=== PATIENT | male | born 1950 | race Caucasian/White ===

== ENCOUNTER 2017-03-31 12:58 | Outpatient (RCR) | payer MEDICARE, BC ==
[2017-02-17 14:09] VITALS: BP 123/75
[2017-02-24] MEDS: [UNRECOGNIZED DRUG - MIXTURE] IVPB PRN (13:49)
[2017-02-24 15:15] VITALS: BP 123/75
[2017-03-03] MEDS: [UNRECOGNIZED DRUG - MIXTURE] IVPB PRN (10:37)
[2017-03-03 11:26] VITALS: BP 121/78
[2017-03-10 10:09] VITALS: BP 112/79
[2017-03-10] MEDS: [UNRECOGNIZED DRUG - MIXTURE] IVPB PRN (10:58)
[2017-03-17 10:57] VITALS: BP 114/77
[2017-03-17] MEDS: NS(*) 0.9% 100 ML BAG 100 ML IVPB PRN (11:00)
[2017-03-17] MEDS: [UNRECOGNIZED DRUG - MIXTURE] IVPB PRN (11:16)
[2017-03-24 13:01] VITALS: BP 112/75
[2017-03-24] MEDS: [UNRECOGNIZED DRUG - MIXTURE] IVPB PRN (13:37)
[~2017-03-31 12:58] MED LIST: DEXTROSE 5%(*) 100 ML BAG 100 ML IVPB PRN; LIDOCAINE/SOD BICARB 8.4% SYR ID PRN; [UNRECOGNIZED DRUG - MIXTURE] IVPB PRN
[2017-03-31 13:37] VITALS: BP 113/74
[2017-03-31] MEDS: NS(*) 0.9% 100 ML BAG 100 ML IVPB PRN (14:18)
[2017-03-31] MEDS: [UNRECOGNIZED DRUG - MIXTURE] IVPB PRN (14:18)
[2017-04-04] MEDS ORDERED: FLU44R INH (09:04)
[2017-04-04] MEDS ORDERED: ALB18R INH (09:04)
[2017-04-18] MEDS ORDERED: FURO-45 PO (07:53)
[2017-04-18] MEDS ORDERED: POTA10CA40 PO (07:53)
[2017-04-18] MEDS ORDERED: GUAI600T57 PO (07:53)
[2017-04-18] MEDS ORDERED: DIGO125T90 PO (07:53)
[2017-04-18] MEDS ORDERED: PRED20TA6 PO (07:53)
[2017-04-18] MEDS ORDERED: SPIR25TA78 PO (07:53)
[2017-04-18] MEDS ORDERED: DILT120C18 PO (07:53)
[2017-04-18] MEDS ORDERED: FLUC200T56 PO (08:16)
[2017-04-29] MEDS ORDERED: DILT120C18 PO (14:53)
[2017-04-29] MEDS ORDERED: AZIT-1 PO (14:56)
[2017-04-29] MEDS ORDERED: OSE75 PO (14:56)
[2017-05-13] MEDS ORDERED: FURO-45 PO (11:58)
[2017-05-13] MEDS ORDERED: POTA10CA40 PO (11:58)
[2017-05-15] MEDS ORDERED: CHOL500045 PO (14:01)
== END 2017-05-17 ==
LOC: SPU 12:58
PROVIDERS: ATTEND Internal Medicine Pulmonary Disease
DX: E88.01 Alpha-1-antitrypsin deficiency (principal)
CPT/HCPCS: 96365; J0256; J7050

== ENCOUNTER 2017-04-04 08:55 | Inpatient (IN) | payer MEDICARE, BC ==
[2017-04-04] VITALS (39 sets, daily range): BP systolic 82–116; BP diastolic 47–80
[~2017-04-04] VITALS: Ht 182.9 cm; Wt 96.6 kg
--- NOTE | 2017-04-04 08:58 | ER Report ---
History and Physical Time Seen By MD: 08:57 HPI/ROS CC: Shortness of breath productive cough HPI: 66-year-old male with a past medical history of antitrypsin deficiency, COPD, oxygen dependent presents to the emergency department with shortness of breath and productive cough. states that they started a Z-Niko on 10/23/2016. He has a standing order for antibiotics due to his antitrypsin and COPD pathology. He has continued to have shortness of breath. He had slight improvement with decrease of fever after the 1st Z-Niko but he is not totally resolved. He presents today with slight hypoxia and increased respiratory rate. He is using accessory muscles. He denies any chest pressure or palpitations. He is talking in 3 to forward sentences. He is getting infusions for his antitrypsin deficiency. ROS: 12 point review of systems essentially negative other than what's mentioned in history of present illness. NURSES AND OLD MEDICAL RECORDS: Reviewed PMH: Reviewed SURGICAL HX: Reviewed FAMILY HX: Noncontributory SOCIAL HX: Patient denies smoking alcohol or illicit drugs. VITAL SIGNS: Reviewed CONSTITUTIONAL: 66-year-old male in moderate to severe distress. PHYSICAL EXAM: HEENT: Pupils equal round reactive to light and accommodate, EOMI, tympanic membranes pearly white umbo present with good light reflex. Lips dry mucous membranes moist gums nonbleeding uvula midline and rises equally with phonation, oropharynx noninjected, teeth intact. NECK: Neck supple, thyroid not appreciated, anterior and posterior cervical lymphadenopathy not appreciated. Trachea midline and rises equally with phonation. CARDIAC: S1-S2 regular rate rhythm no murmurs rubs or gallops. LUNGS: Lungs decreased air movement with expiratory wheeze with rhonchi bilaterally posteriorly in all baker. ABDOMEN: Abdomen soft, nondistended, bowel sounds active in all 4 quadrants, no bruits noted, no CVA tenderness. MUSCULOSKELETAL: Strength 5 out of 5 x 4 extremities, no deformities noted. NEUROLOGIC: Patient alert and oriented by 3 Allergies: Coded Allergies: shellfish derived (Verified Allergy, Severe, 04/04/17) Home Meds Reported Medications Fluticasone Prop 44 Mcg (FLOVENT HFA 44 MCG) 44 Mcg Inha, 44 MCG INH BID, INH 04/04/17 Albuterol Sulfate (VENTOLIN HFA) 18 Gm Inh, 2 PUFF INH Q4-6H, INH 04/04/17 Hx Smoking: No Smoking Status: Never Smoker Exposure to Second Hand Smoke?: Yes (mother and father smoked growing up) Constitutional Vital Sign - Last 24 Hours 04/04/17 04/04/17 04/04/17 04/04/17 08:59 09:00 09:01 09:03 Pulse 85 Resp 26 B/P (MAP) 107/78 107/78 (88) 110/76 (87) Pulse Ox 72 73 O2 Delivery Nasal Cannula 04/04/17 04/04/17 04/04/17 04/04/17 09:08 09:15 09:28 09:28 Pulse 83 84 Resp 25 15 B/P (MAP) 116/78 (91) Pulse Ox 89 92 O2 Delivery Non-Rebreather O2 Flow Rate 15.0 15.0 04/04/17 04/04/17 04/04/17 04/04/17 09:30 09:35 09:45 10:00 Pulse 79 84 86 Resp 14 21 33 28 B/P (MAP) 94/70 (78) 118/70 (86) 109/69 (82) Pulse Ox 90 90 88 04/04/17 10:15 Pulse 86 Resp 19 Pulse Ox 86 Medical Decision Making Data Points Result Diagram: 04/04/17 0908 04/04/17 0908 Laboratory Hematology Test 04/04/17 09:08 04/04/17 10:05 04/04/17 11:02 Red Blood Count 6.97 M/uL (4.00-5.60) Mean Corpuscular Volume 94.0 fL (80.0-96.0) Mean Corpuscular Hemoglobin 31.9 pg (26.0-33.0) Mean Corpuscular Hemoglobin Concent 34.0 g/dL (32.0-36.0) Red Cell Distribution Width 16.4 % (11.5-14.5) Mean Platelet Volume 9.8 fL (7.2-11.1) Neutrophils (%) (Auto) 76.6 % (39.4-72.5) Lymphocytes (%) (Auto) 9.6 % (17.6-49.6) Monocytes (%) (Auto) 10.8 % (4.1-12.4) Eosinophils (%) (Auto) 2.7 % (0.4-6.7) Basophils (%) (Auto) 0.3 % (0.3-1.4) Nucleated RBC Relative Count (auto) 0.1 /100WBC Neutrophils # (Auto) 5.6 K/uL (2.0-7.4) Lymphocytes # (Auto) 0.7 K/uL (1.3-3.6) Monocytes # (Auto) 0.8 K/uL (0.3-1.0) Eosinophils # (Auto) 0.2 K/uL (0.0-0.5) Basophils # (Auto) 0.0 K/uL (0.0-0.1) Nucleated RBC Absolute Count (auto) 0.01 K/uL Sodium Level 136 mmol/L (137-145) Potassium Level 3.3 mmol/L (3.5-5.0) Chloride Level 98 mmol/L (98-107) Carbon Dioxide Level 27 mmol/L (22-30) Blood Urea Nitrogen 12 mg/dl (9-21) Creatinine 0.80 mg/dl (0.66-1.25) Glomerular Filtration Rate Calc > 60.0 Random Glucose 88 mg/dl (75-110) Calcium Level 9.2 mg/dl (8.4-10.2) Total Bilirubin 4.6 mg/dl (0.2-1.3) Aspartate Amino Transf (AST/SGOT) 44 U/L (0-35) Alanine Aminotransferase (ALT/SGPT) 34 U/L (0-56) Alkaline Phosphatase 101 U/L (0-126) Troponin I < 0.012 ng/ml Total Protein 8.1 gm/dl (6.3-8.2) Albumin 4.1 g/dl (3.5-5.0) Blood Gas Puncture Site Right radial Blood Gas Patient Temperature 97.8 DEGREES Arterial Blood pH 7.57 (7.35-7.45) Arterial Blood Partial Pressure CO2 26 mmHg (32-37) Arterial Blood Partial Pressure O2 59 mmHg (60-80) Arterial Blood HCO3 24 mmol/L (20-26) Arterial Blood Oxygen Saturation 94 % (92-100) Arterial Blood Base Excess 2.0 mmol/L Benja Test Acceptable Oxygen Liters/Minute 15l nrb Influenza Type A Antigen Negative (NEGATIVE) Influenza Type B Antigen Negative (NEGATIVE) Chemistry Test 04/04/17 09:08 04/04/17 10:05 04/04/17 11:02 White Blood Count 7.3 k/uL (4.5-11.0) Red Blood Count 6.97 M/uL (4.00-5.60) Hemoglobin 22.2 g/dL (14.0-18.0) Hematocrit 65.5 % (42.0-52.0) Mean Corpuscular Volume 94.0 fL (80.0-96.0) Mean Corpuscular Hemoglobin 31.9 pg (26.0-33.0) Mean Corpuscular Hemoglobin Concent 34.0 g/dL (32.0-36.0) Red Cell Distribution Width 16.4 % (11.5-14.5) Platelet Count 86 K/uL (150-450) Mean Platelet Volume 9.8 fL (7.2-11.1) Neutrophils (%) (Auto) 76.6 % (39.4-72.5) Lymphocytes (%) (Auto) 9.6 % (17.6-49.6) Monocytes (%) (Auto) 10.8 % (4.1-12.4) Eosinophils (%) (Auto) 2.7 % (0.4-6.7) Basophils (%) (Auto) 0.3 % (0.3-1.4) Nucleated RBC Relative Count (auto) 0.1 /100WBC Neutrophils # (Auto) 5.6 K/uL (2.0-7.4) Lymphocytes # (Auto) 0.7 K/uL (1.3-3.6) Monocytes # (Auto) 0.8 K/uL (0.3-1.0) Eosinophils # (Auto) 0.2 K/uL (0.0-0.5) Basophils # (Auto) 0.0 K/uL (0.0-0.1) Nucleated RBC Absolute Count (auto) 0.01 K/uL Glomerular Filtration Rate Calc > 60.0 Calcium Level 9.2 mg/dl (8.4-10.2) Total Bilirubin 4.6 mg/dl (0.2-1.3) Aspartate Amino Transf (AST/SGOT) 44 U/L (0-35) Alanine Aminotransferase (ALT/SGPT) 34 U/L (0-56) Alkaline Phosphatase 101 U/L (0-126) Troponin I < 0.012 ng/ml Total Protein 8.1 gm/dl (6.3-8.2) Albumin 4.1 g/dl (3.5-5.0) Blood Gas Puncture Site Right radial Blood Gas Patient Temperature 97.8 DEGREES Arterial Blood pH 7.57 (7.35-7.45) Arterial Blood Partial Pressure CO2 26 mmHg (32-37) Arterial Blood Partial Pressure O2 59 mmHg (60-80) Arterial Blood HCO3 24 mmol/L (20-26) Arterial Blood Oxygen Saturation 94 % (92-100) Arterial Blood Base Excess 2.0 mmol/L Benja Test Acceptable Oxygen Liters/Minute 15l nrb Influenza Type A Antigen Negative (NEGATIVE) Influenza Type B Antigen Negative (NEGATIVE) Microbiology Microbiology Date/Time Source Procedure Growth Status 04/04/17 09:50 Blood Blood Culture - Preliminary NO GROWTH SO FAR, SET LATE. REINCUBATED Resulted EKG/Imaging Imaging Chest x-ray: IMPRESSION: Patchy right lower lobe consolidation is consistent with pneumonia. Probable additional left lower lobe pneumonia. If the findings are clinically consistent with pneumonia, six-week follow-up after antibiotic treatment is recommended. ED Course/Re-evaluation ED Course Patient received steroids, DuoNeb treatment, antibiotics. Patient is improved but with hemoconcentration. Influenza A and B are negative. Also patient due to acute respiratory alkalosis patient received Ativan. Patient will be given Klor-Con due to his potassium is 3.3. Magnesium is pending. I discussed the case with Dr. Ponce, hospitalist. She accepts patient. Re-evaluation Medical decision-making includes but not limited to PE, pneumonia, COPD exacerbation. Decision to Disposition Date: Apr 04, 2017 Decision to Disposition Time: 12:37 Depart Departure Latest Vital Signs Vital Signs Date Time Temp Pulse Resp B/P (MAP) Pulse Ox O2 Delivery O2 Flow Rate FiO2 04/04/17 10:15 86 19 86 04/04/17 10:00 109/69 (82) 04/04/17 09:28 Non-Rebreather 15.0 Impression: Primary Impression: Elevated hemoglobin Additional Impression: Alpha 1-antitrypsin PiMS phenotype Condition: Improved Disposition: Admitted from ER Problem Qualifiers MARINO BURRIS MD Apr 04, 2017 08:58
[2017-04-04] MEDS ORDERED: ALB18R INH (09:04)
[2017-04-04] MEDS ORDERED: FLU44R INH (09:04)
[2017-04-04] MEDS ORDERED: PIPERACILLIN/TAZO*3.375GM VIAL 3.375 GM in NS(*) 0.9% 100 ML ADDVANT BAG 100 ML IVPB ONE (09:20)
[2017-04-04] MEDS ORDERED: ALBUTEROL/IPRATROPIUM 3 ML NEB NEB SCH (09:20)
[2017-04-04] MEDS: LORazepam 2 MG/ML VIAL IVP ONE ×2 (09:40→10:10)
[2017-04-04] MEDS: methylPREDNIS SUCC 125 MG/2ML IVP ONE ×2 (09:42→10:12)
[2017-04-04 09:49] LABS: PLATELET COUNT, AUTOMATED 86 K/uL (150-450)
--- NOTE | 2017-04-04 10:31 | RADIOLOGY IMAGING REPORT ---
FACILITY: [facility] [place] PATIENT NAME: Marino Evans : 1950 MR: [id number] V: [id number] EXAM DATE: ORDERING PHYSICIAN: MARINO BURRIS TECHNOLOGIST: Location: [facility] Patient: Marino Evans : 1950 Visit/Account:[id number] Date of Sevice: 04/04/2017 CHEST SINGLE AP portable AP at 0947 hours COMPARISON: No available comparisons at the time of this report. The patient has a previous PA latera l chest from 09/17/1715 which cannot be retrieved/reviewed at the time of this report.. HISTORY: RESP DISTRESS FINDINGS: CARDIAC/VASC: No cardiac silhouette abnormality or cardiomegaly. Unremarkable pulmonary vasculatu re. MEDIASTINUM: No visible mass or adenopathy. LUNGS/PLEURA: Patchy interstitial opacities in the right lower lobe consistent with right lower lobe pneumonia. There is an interstitial abnormality in the retrocardiac left lower lobe present to a les ser degree. Unclear if this is acute or chronic. Left lower lobe pneumonia is not excluded.. There is no costophrenic angle blunting and there is no pneumothorax. BONES: No fracture or visible bony lesion. OTHER:Negative. IMPRESSION: Patchy right lower lobe consolidation is consistent with pneumonia. Probable additional left lower lo be pneumonia. If the findings are clinically consistent with pneumonia, six-week follow-up after anti biotic treatment is recommended. Report Dictated By: Miguel Morgan at 04/04/2017 10:24 AM Report E-Signed By: Miguel Morgan at 04/04/2017 10:26 AM WSN:[id number]
[2017-04-04] MEDS ORDERED: NS(*) 0.9% 1000 ML BAG 1,000 ML IV ONE (11:00)
[2017-04-04] MEDS ORDERED: POTASSIUM CHL 20 MEQ TABCR PO ONE (12:40)
[2017-04-04] MEDS ORDERED: INFLUENZA VIRUS VAC 0.5 ML SYR IM ONLY ONE (13:30)
[2017-04-04] MEDS ORDERED: ALBUTEROL 2.5 MG/3 ML NEB NEB PRN (13:30)
[2017-04-04] MEDS ORDERED: ACETAMINOPHEN 325 MG TAB PO PRN (13:30)
[2017-04-04] MEDS: ALBUTEROL/IPRATROPIUM 3 ML NEB NEB SCH ×2 (14:00→17:29)
[2017-04-04] MEDS: NS(*) 0.9% 1000 ML BAG 1,000 ML IV PRN ×2 (14:08→21:24)
[2017-04-04] MEDS: LEVOFLOXACIN/D5W 750 MG/150 ML 150 ML IVPB SCH (14:35)
--- NOTE | 2017-04-04 14:41 | History & Physical ---
History of Present Illness Chief Complaint The patient is a 66 year old male with PMH significant for alpha 1 antitrypsin deficiency who presents with fever and cough starting the evening of March 24. History of Present Illness The patient states he has had lung disease for many years and has seen multiple pulmonologists and ENTs. He reportedly had an alpha 1 antitrypsin level done about 12 years ago, but no one every reviewed it so his deficiency was not identified. A little over a year ago, the patient started seeing Dr Rain, injection maintenance technician, in [place]. Dr. Rain got all of the patient's old medical records and reviewed them. He found the alpha 1 antitrypsin level at that time. Since then, the patient has received weekly replacement through the [facility]. He reports he has about 35% of his lung function remaining at this point. He has an appt. to see one of the world renowned specialists regarding alpha 1 antitrypsin deficiency, Dr. Jurado, at [facility] in April. The patient states he received his infusion at the [facility] on March 24. That evening, his throat felt raw. Early in the morning on the , his temperature shot up to 102 degrees. The patient has azithromycin at home to take in case of respiratory infection. He completed a Z-cesario, but did not feel better. His symptoms continued to worsen and he presented to [facility] ER this am for evaluation. The patient has had cough which has been productive. He has been more short of breath. He usually uses 5L of O2 at home. He also uses a Flovent MDI and a Proventil MDI at home. He uses OTC guaifenesin to thin his mucous. He usually takes 3-4 600mg tablets daily. The patient denies leg swelling or pain. He has not travelled. He has not been exposed to anyone with influenza that he knows of, but was in the [facility] prior to becoming ill. He denies chest pain, but has had some tightness which is improved with albuterol. He has no hx of cardiac disease or clotting issues. History Problems: (1) Alpha 1-antitrypsin PiMS phenotype Status: Chronic (2) GERD (gastroesophageal reflux disease) Status: Chronic (3) History of Norm fundoplication Status: Chronic (4) History of inguinal hernia repair, bilateral Status: Resolved (5) History of rectal surgery Status: Resolved Comment: Anal fissure repair. (6) Hx of tonsillectomy Status: Resolved (7) Nephrolithiasis Status: Resolved (8) Hx of cystoscopy Status: Resolved Home Meds Reported Medications Fluticasone Prop 44 Mcg (FLOVENT HFA 44 MCG) 44 Mcg Inha, 44 MCG INH BID, INH 04/04/17 Albuterol Sulfate (VENTOLIN HFA) 18 Gm Inh, 2 PUFF INH Q4-6H, INH 04/04/17 Allergies: Coded Allergies: shellfish derived (Verified Allergy, Severe, 04/04/17) Other Social/Family Hx The [place] . He never smoked and does not drink alcohol. 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 FH is noncontributory. FH is noncontributory at this time. Hx Smoking: No Smoking Status: Never Smoker Exposure to Second Hand Smoke?: Yes (mother and father smoked growing up) Hx Alcohol Use: No Hx Substance Use Disorder: No Social Drug Use: Never History of IV Drug Use: No Review of Systems All Systems Reviewed/Normal: Yes, Except as Noted Constitutional: Fever, Chills Neurological: Weakness Cardiovascular: Other (Chest tightness.) Respiratory: Shortness of Breath, Cough Gastrointestinal: No Nausea, No Vomiting, No Diarrhea Genitourinary: No Dysuria Musculoskeletal: No Pain Exam Vital Signs Vital Signs Date Time Temp Pulse Resp B/P (MAP) Pulse Ox O2 Delivery O2 Flow Rate FiO2 04/04/17 12:00 18 99/66 (77) 91 04/04/17 11:30 73 04/04/17 09:28 Non-Rebreather 15.0 General Appearance: Alert, Awake, No Acute Distress, Afebrile, Other (Thin.) Neuro: No Gross deficits Eyes: PERRLA ENT: Normal Neck: No Masses Cardiovascular: Regular Rate and Rhythm Respiratory: Other ( BS throughout with some end exiratory wheezes posteriorly, bilaterally.) GI: Abd Soft and Non-Tender Extremities: Warm, Perfused, Other (No edema.) Integumentary: Skin Intact without Lesion / Mass Psych: Alert & Oriented X3, Appropriate Mood & Affect Medical Decision Making Data Points Result Diagram: 04/04/17 0908 04/04/17 0908 Item Value Date Time Influenza Type A Antigen Negative 04/04/17 1102 Influenza Type B Antigen Negative 04/04/17 1102 Item Value Date Time Blood Gas Puncture Site Right radial 04/04/17 1005 Blood Gas Patient Temperature 97.8 DEGREES 04/04/17 1005 Arterial Blood pH 7.57 H 04/04/17 1005 Arterial Blood Partial Pressure CO2 26 mmHg L 04/04/17 1005 Arterial Blood Partial Pressure O2 59 mmHg L 04/04/17 1005 Arterial Blood HCO3 24 mmol/L 04/04/17 1005 Arterial Blood Oxygen Saturation 94 % 04/04/17 1005 Arterial Blood Base Excess 2.0 mmol/L 04/04/17 1005 Benja Test Acceptable 04/04/17 1005 Oxygen Liters/Minute 15l nrb 04/04/17 1005 Calcium Level 9.2 mg/dl 04/04/17 0908 Total Bilirubin 4.6 mg/dl H 04/04/17 0908 Aspartate Amino Transf (AST/SGOT) 44 U/L H 04/04/17 0908 Alanine Aminotransferase (ALT/SGPT) 34 U/L 04/04/17 0908 Alkaline Phosphatase 101 U/L 04/04/17 0908 Troponin I < 0.012 ng/ml 04/04/17 0908 Total Protein 8.1 gm/dl 04/04/17 0908 Albumin 4.1 g/dl 04/04/17 0908 Blood and sputum cultures pending. EKG / Imaging Imaging FACILITY: [facility] PATIENT NAME: Marino Evans : 1950 MR: [id number] V: [id number] EXAM DATE: ORDERING PHYSICIAN: MARINO BURRIS TECHNOLOGIST: Location: [facility] - [place], [place] Patient: Marino Evans : 1950 Visit/Account:[id number] Date of Sevice: 04/04/2017 CHEST SINGLE AP portable AP at 0947 hours COMPARISON: No available comparisons at the time of this report. The patient has a previous PA lateral chest from 09/17/1715 which cannot be retrieved/ reviewed at the time of this report.. HISTORY: RESP DISTRESS FINDINGS: CARDIAC/VASC: No cardiac silhouette abnormality or cardiomegaly. Unremarkable pulmonary vasculature. MEDIASTINUM: No visible mass or adenopathy. LUNGS/PLEURA: Patchy interstitial opacities in the right lower lobe consistent with right lower lobe pneumonia. There is an interstitial abnormality in the retrocardiac left lower lobe present to a lesser degree. Unclear if this is acute or chronic. Left lower lobe pneumonia is not excluded.. There is no costophrenic angle blunting and there is no pneumothorax. BONES: No fracture or visible bony lesion. OTHER:Negative. IMPRESSION: Patchy right lower lobe consolidation is consistent with pneumonia. Probable additional left lower lobe pneumonia. If the findings are clinically consistent with pneumonia, six-week follow-up after antibiotic treatment is recommended. Report Dictated By: Miguel Morgan at 04/04/2017 10:24 AM Report E-Signed By: Miguel Morgan at 04/04/2017 10:26 AM WSN:[id number] Pre-Admit Course ED Medications Zosyn, Duoneb, Solu Medrol, NS, Ativan 1mg. Medical Record Review: Yes Assessment and Plan Problems: (1) Pneumonia Status: Acute Assessment & Plan: The patient has been ill since about 03/24. He initially had high fever. He treated himself with a Zithromax Z-cesario but did not improve. He presents now with bilateral infiltrates. Will place on Zosyn and Levaquin. Consider adding Vancomycin if he does not improve. Will hydrate and continue Solu Medrol. Will order Duonebs qid and albuterol nebs q 2 hours prn. Will continue guaifenesin. He is currently on 15L per nonrebreather. He agrees to intubation if needed while treating his acute infection but does not want us to resuscitate him should he have a cardiac arrest. (2) Hypotension Status: Acute Assessment & Plan: Will bolus with fluids. (3) Alpha 1-antitrypsin PiMS phenotype Status: Chronic Assessment & Plan: [facility] Time Spent on Plan of Care: < 30 min Venous Thromboembolism VTE Risk Patient's VTE Risk: Low VTE Diagnostic Test 2 Days Prior to Admit: No Antithrombotics Is Pt On Any Antithrombotics?: Yes Exam Sepsis Risk: Possible Severe Sepsis Risk MACIEJ ALDRIDGE MD Apr 04, 2017 14:41
[2017-04-04] MEDS: methylPREDNIS SUCC 125 MG/2ML IVP SCH ×2 (16:36→21:19)
[2017-04-04] MEDS: PIPERACILLIN/TAZO*3.375GM VIAL 3.375 GM in NS(*) 0.9% 100 ML ADDVANT BAG 100 ML IVPB SCH ×2 (16:41→21:19)
[2017-04-04] MEDS: guaiFENesin 600 MG TABCR PO SCH (21:19)
[2017-04-05] VITALS (44 sets, daily range): BP systolic 94–118; BP diastolic 59–79; BMI 25.1
[2017-04-05] MEDS: methylPREDNIS SUCC 125 MG/2ML IVP SCH ×4 (04:10→21:16)
[2017-04-05] MEDS: PIPERACILLIN/TAZO*3.375GM VIAL 3.375 GM in NS(*) 0.9% 100 ML ADDVANT BAG 100 ML IVPB SCH ×4 (04:11→21:17)
[2017-04-05 05:35] LABS: PLATELET COUNT, AUTOMATED 61 K/uL (150-450)
[2017-04-05] MEDS: ALBUTEROL/IPRATROPIUM 3 ML NEB NEB SCH ×4 (05:41→17:22)
--- NOTE | 2017-04-05 06:18 | RADIOLOGY IMAGING REPORT ---
FACILITY: [facility] [place] PATIENT NAME: Robi Evans : 1950 MR: [id number] V: [id number] EXAM DATE: ORDERING PHYSICIAN: MACIEJ ALDRIDGE TECHNOLOGIST: Location: [facility] Patient: Robi Evans : 1950 Visit/Account:[id number] Date of Sevice: 04/05/2017 SINGLE AP RADIOGRAPH OF THE CHEST 04/05/2017 6:00 AM. INDICATION: Pneumonia. COMPARISON: Yesterday. FINDINGS/IMPRESSION: Bilateral infrahilar opacification is likely slightly improved on the right. No definite pleural effusion or pneumothorax. Central pulmonary vasculature is prominent. Heart size is normal. Report Dictated By: Bruce Martinez MD at 04/05/2017 6:12 AM Report E-Signed By: Bruce Martinez MD at 04/05/2017 6:14 AM WSN:[id number]
--- NOTE | 2017-04-05 08:30 | Hospitalist Progress Note ---
Subjective Progress Notes Subjective He reports some minor improvements. No fever. Physical Exam Vital Signs Date Time Temp Pulse Resp B/P (MAP) Pulse Ox O2 Delivery O2 Flow Rate FiO2 04/05/17 06:30 55 13 106/67 (80) 91 Vapotherm 25.0 100.0 04/05/17 04:00 97.5 General Appearance: Alert, Awake Cardiovascular: Regular Rate and Rhythm Respiratory: Other (diminished breath sound sthroughout/rales at right base) GI: Soft and Non-Tender Extremities: Warm, Perfused Psych: Alert & Oriented X3 Result Diagram: 04/05/1752304/05/17523 Assessment and Plan Problems: (1) Pneumonia Status: Acute Assessment & Plan: He does have fairly severe underlying COPD secondary to his alpha 1 antitrypsin deficiency. He has been ill since about 03/24/17. He initially had high fever. He treated himself with a Zithromax Z-pack, but did not improve. He presented now with bilateral infiltrates on CXR. He is currently on IV Zosyn, Levaquin, Solu Medrol, Duo-Neb, albuterol, and guaifenesin. He has fairly high O2 requirement, but does appear comfortable at this point. Will continue with the Vapotherm and do short trials with high flow nasal cannula. He agrees to intubation if needed while treating his acute infection, but does not want us to resuscitate him should he have a cardiac arrest. (2) Hypotension Status: Acute Assessment & Plan: Improved with IV fluids. (3) Alpha 1-antitrypsin PiMS phenotype Status: Chronic Assessment & Plan: He has fairly advanced COPD. He [facility]. Exam Sepsis Risk: No Definite Risk CJ ALDRIDGE MD Apr 05, 2017 08:30
[2017-04-05] MEDS: NS(*) 0.9% 1000 ML BAG 1,000 ML IV PRN ×2 (09:31→21:18)
[2017-04-05] MEDS: guaiFENesin 600 MG TABCR PO SCH ×2 (09:31→21:13)
[2017-04-05] MEDS: ENOXAPARIN 40 MG/0.4ML SYR SC SCH (09:32)
[2017-04-05] MEDS: LEVOFLOXACIN/D5W 750 MG/150 ML 150 ML IVPB SCH (14:05)
[2017-04-06] VITALS (24 sets, daily range): BP systolic 93–121; BP diastolic 54–79
[2017-04-06] MEDS: PIPERACILLIN/TAZO*3.375GM VIAL 3.375 GM in NS(*) 0.9% 100 ML ADDVANT BAG 100 ML IVPB SCH ×4 (04:01→21:52)
[2017-04-06] MEDS: methylPREDNIS SUCC 125 MG/2ML IVP SCH ×4 (04:01→21:52)
[2017-04-06 05:01] LABS: PLATELET COUNT, AUTOMATED 70 K/uL (150-450)
[2017-04-06] MEDS: ALBUTEROL/IPRATROPIUM 3 ML NEB NEB SCH ×4 (05:35→16:55)
--- NOTE | 2017-04-06 06:26 | RADIOLOGY IMAGING REPORT ---
FACILITY: [facility] [place] PATIENT NAME: Robi Evans : 1950 MR: [id number] V: [id number] EXAM DATE: ORDERING PHYSICIAN: CJ ALDRIDGE TECHNOLOGIST: [place] [facility] [place] Robi Evans : 1950 Visit/Account:[id number] Date of Sevice: 04/06/2017 SINGLE AP RADIOGRAPH OF THE CHEST 04/06/2017 6:00 AM. INDICATION: right lower lobe pneumonia COMPARISON: Yesterday. FINDINGS: Bilateral infrahilar/lower lung opacities are likely not significantly changed. No definite pleural effusion or pneumothorax. Heart size is normal. IMPRESSION: No significant change. Report Dictated By: Bruce Martinez MD at 04/06/2017 6:21 AM Report E-Signed By: Bruce Martinez MD at 04/06/2017 6:22 AM WSN:[id number]
[2017-04-06] MEDS: guaiFENesin 600 MG TABCR PO SCH ×2 (09:27→21:03)
[2017-04-06] MEDS: ENOXAPARIN 40 MG/0.4ML SYR SC SCH (09:29)
[2017-04-06] MEDS: NS(*) 0.9% 1000 ML BAG 1,000 ML IV PRN (09:32)
--- NOTE | 2017-04-06 10:18 | Hospitalist Progress Note ---
Subjective Progress Notes Subjective This patient was admitted for pneumonia and respiratory failure. He had no acute issues overnight. Patient Complains of: Cardiovascular: No: Chest Pain Respiratory: No: Shortness of Breath Physical Exam Vital Signs Date Time Temp Pulse Resp B/P (MAP) Pulse Ox O2 Delivery O2 Flow Rate FiO2 04/06/17 09:15 80 14 04/06/17 09:08 89 High-Flow Nasal Cannula 13.0 04/06/17 08:00 97.9 118/75 (89) 04/06/17 04:12 100.0 Intake and Output 04/07/17 07:01 Intake Total 200 ml Balance 200 ml Intake Oral 200 ml # Voids 1 # Bowel Movements 1 Neuro: No Gross deficits Eyes: PERRLA Cardiovascular: Regular Rate and Rhythm Respiratory: Clear to Auscultation GI: Soft and Non-Tender Extremities: No Edema Integumentary: No Cyanosis Result Diagram: 04/06/17 0445 04/06/17 0445 Item Value Date Time Influenza Type A Antigen Negative 04/04/17 1102 Influenza Type B Antigen Negative 04/04/17 1102 Item Value Date Time Gram Stain - Final Resulted 04/04/17 1400 Sputum Expectorated Assessment and Plan Problems: (1) Bacterial pneumonia Assessment & Plan: He did present with fever and cough. His chest x-ray did show an infiltrate in the right lung. He has been on empiric treatment with Zosyn and levofloxacin. His sputum culture is showing a gram negative robinson. (2) Acute respiratory failure Assessment & Plan: He did initial require Vapotherm, but is now being maintained on high flow nasal canula. (3) COPD exacerbation Assessment & Plan: He is receiving nebulizers and IV steroids. (4) Hypotension Status: Acute Assessment & Plan: Resolved with IV fluids. (5) Hpsfz-2-fkidcgoqyvauzdka deficiency Assessment & Plan: He does receive [facility] infusions through the [facility]. He is scheduled for another dose tomorrow. We will try to obtain the medication so that it can be obtained here. Exam Sepsis Risk: No Definite Risk LIYAH BUSTAMANTE DO Apr 06, 2017 10:18
[2017-04-06] MEDS: LEVOFLOXACIN/D5W 750 MG/150 ML 150 ML IVPB SCH (13:58)
[2017-04-07] VITALS (18 sets, daily range): BP systolic 91–131; BP diastolic 52–88
[2017-04-07] MEDS: PIPERACILLIN/TAZO*3.375GM VIAL 3.375 GM in NS(*) 0.9% 100 ML ADDVANT BAG 100 ML IVPB SCH ×2 (05:14→10:11)
[2017-04-07] MEDS: methylPREDNIS SUCC 125 MG/2ML IVP SCH ×4 (05:15→22:33)
[2017-04-07] MEDS: ALBUTEROL/IPRATROPIUM 3 ML NEB NEB SCH ×4 (05:20→17:01)
[2017-04-07 05:40] LABS: PLATELET COUNT, AUTOMATED 74 K/uL (150-450)
[2017-04-07] MEDS ORDERED: [UNRECOGNIZED DRUG - MIXTURE] IVPB PRN ×2 (09:11→09:15)
[2017-04-07] MEDS: guaiFENesin 600 MG TABCR PO SCH ×2 (09:29→21:35)
[2017-04-07] MEDS: ENOXAPARIN 40 MG/0.4ML SYR SC SCH (09:31)
[2017-04-07] MEDS: NS(*) 0.9% 500 ML BAG 500 ML IV PRN (09:33)
--- NOTE | 2017-04-07 10:52 | Hospitalist Progress Note ---
Subjective Progress Notes Subjective Overall breathing better. On less O2 today. Physical Exam Vital Signs Date Time Temp Pulse Resp B/P (MAP) Pulse Ox O2 Delivery O2 Flow Rate FiO2 04/07/17 09:24 71 16 04/07/17 09:18 85 High-Flow Nasal Cannula 10.0 04/07/17 08:00 97.8 115/75 (88) 04/06/17 04:12 100.0 Intake and Output 04/08/17 07:00 Intake Total 399 ml Balance 399 ml Intake Oral 200 ml IV Total 199 ml # Voids 1 # Bowel Movements 1 General Appearance: Alert, Awake, No Acute Distress Cardiovascular: Regular Rate and Rhythm Respiratory: Clear to Auscultation Extremities: No Edema Result Diagram: 04/07/1710 04/07/17 0510 Assessment and Plan Problems: (1) Bacterial pneumonia Assessment & Plan: He did present with fever and cough. His chest x-ray did show an infiltrate in the right lung. He has been on empiric treatment with Zosyn and levofloxacin. His sputum culture is growing an Enterobacter Cloacae Complex and MSSA. Will switch to Unasyn and continue Levofloxacin based on sensitivities. His O2 requirement is decreasing, but still high and not to baseline. He will be transferred to the medical floor. (2) Acute respiratory failure Assessment & Plan: He did initial require Vapotherm, but is now being maintained on high flow nasal canula. See above. (3) COPD exacerbation Assessment & Plan: He is receiving nebulizers and IV steroids. (4) Hypotension Status: Acute Assessment & Plan: Resolved with IV fluids. Saline locked. (5) Xxhlf-5-uculmxsrcvrlvrul deficiency Assessment & Plan: [facility] He is scheduled for another dose today. Exam Sepsis Risk: No Definite Risk ANSELMO MENEZES MD Apr 07, 2017 10:52
[2017-04-07] MEDS: LEVOFLOXACIN/D5W 750 MG/150 ML 150 ML IVPB SCH (14:09)
[2017-04-07] MEDS: AMPICILLIN/SULBACT (*) 3 GM VL 3 GM in NS(*) 0.9% 100 ML BAG 100 ML IVPB SCH ×2 (16:30→22:24)
[2017-04-08] MEDS: AMPICILLIN/SULBACT (*) 3 GM VL 3 GM in NS(*) 0.9% 100 ML BAG 100 ML IVPB SCH ×4 (03:25→22:04)
[2017-04-08 03:26] VITALS: BP 118/85
[2017-04-08] MEDS: methylPREDNIS SUCC 125 MG/2ML IVP SCH ×4 (04:08→22:07)
[2017-04-08] MEDS: ALBUTEROL/IPRATROPIUM 3 ML NEB NEB SCH ×4 (05:43→16:53)
[2017-04-08 08:30] VITALS: BP 120/76
[2017-04-08] MEDS: ENOXAPARIN 40 MG/0.4ML SYR SC SCH (09:30)
[2017-04-08] MEDS: guaiFENesin 600 MG TABCR PO SCH ×2 (09:30→20:34)
[2017-04-08 12:25] VITALS: BP 113/90
--- NOTE | 2017-04-08 13:36 | RADIOLOGY IMAGING REPORT ---
FACILITY: [facility] PATIENT NAME: Robi Evans : 1950 MR: [id number] V: [id number] EXAM DATE: ORDERING PHYSICIAN: CJ ALDRIDGE TECHNOLOGIST: Location: [facility] Patient: Robi Evans : 1950 Visit/Account:[id number] Date of Sevice: 04/08/2017 Exam type: CHEST PA AND LAT History: pneumonia Comparison: April 06, 2017. And September 24, 2015 Findings: There is coarse pleural parenchymal scarring in the right lung base as was present on the prior chest from 2016. This does appear slightly increased could represent a superimposed acute process. This finding appears unchanged when compared to April 06, 2017 Linear stranding in the left lung base als o appears similar to the prior study. The cardiac silhouette is normal in size. IMPRESSION: 1. Is coarse pleural parenchymal scarring the right lung base as was present in 2016. This appears slightly more prominent when compared to that study although unchanged when compared to April 06 and could represent an acute process such as acute infiltrate and/or atelectasis. Linear stranding left lung base appears stable when compared to 2016 Report Dictated By: Lenore Smith MD at 04/08/2017 1:27 PM Report E-Signed By: Lenore Smith MD at 04/08/2017 1:31 PM WSN:[email or web address]
--- NOTE | 2017-04-08 14:23 | Hospitalist Progress Note ---
Subjective Progress Notes Subjective His oxygen requirement has been variable. No fever. Physical Exam Vital Signs Date Time Temp Pulse Resp B/P (MAP) Pulse Ox O2 Delivery O2 Flow Rate FiO2 04/08/17 13:15 80 18 04/08/17 13:05 86 High-Flow Nasal Cannula 15.0 04/08/17 12:25 97.5 113/90 (98) 04/06/17 04:12 100.0 Intake and Output 04/09/17 07:00 Intake Total 1790 ml Balance 1790 ml Intake Oral 1790 ml General Appearance: Alert, Awake Cardiovascular: Regular Rate and Rhythm Respiratory: Other (diminished breath sounds bilaterally/scattered rhonchi/no wheezes) GI: Soft and Non-Tender Extremities: Warm, Perfused Result Diagram: 04/07/17 0510 04/07/17 05 Assessment and Plan Problems: (1) Bacterial pneumonia Assessment & Plan: He did present with fever and cough. His chest x-ray did show an infiltrate in the right lung. He was on empiric treatment with Zosyn and levofloxacin, but his sputum culture grew an Enterobacter Cloacae Complex and MSSA. We switched to Unasyn and continued Levofloxacin based on sensitivities. His O2 requirement is variable at times, but still fairly high and not to baseline. Will recheck CXR to see if any complicating factors. (2) COPD exacerbation Assessment & Plan: He is receiving nebulizers and IV steroids. (3) Hypotension Status: Acute Assessment & Plan: Resolved with IV fluids. Saline locked. (4) Idwhc-0-sbcvobpvqwrlxqva deficiency Assessment & Plan: He does [facility]. Exam Sepsis Risk: No Definite Risk CJ ALDRIDGE MD Apr 08, 2017 14:22
[2017-04-08] MEDS: LEVOFLOXACIN/D5W 750 MG/150 ML 150 ML IVPB SCH (14:49)
[2017-04-08 14:58] VITALS: BP 121/84
[2017-04-08 20:17] VITALS: BP 122/76
[2017-04-08 22:10] VITALS: BP 116/82
[2017-04-09 04:43] VITALS: BP 120/81
[2017-04-09] MEDS: AMPICILLIN/SULBACT (*) 3 GM VL 3 GM in NS(*) 0.9% 100 ML BAG 100 ML IVPB SCH ×4 (04:43→21:34)
[2017-04-09] MEDS: methylPREDNIS SUCC 125 MG/2ML IVP SCH ×3 (04:43→16:35)
[2017-04-09] MEDS: ALBUTEROL/IPRATROPIUM 3 ML NEB NEB SCH ×6 (05:21→21:11)
[2017-04-09 06:19] LABS: PLATELET COUNT, AUTOMATED 82 K/uL (150-450)
[2017-04-09] MEDS: ENOXAPARIN 40 MG/0.4ML SYR SC SCH (08:16)
[2017-04-09] MEDS: guaiFENesin 600 MG TABCR PO SCH ×2 (08:16→21:27)
[2017-04-09] MEDS: LEVOFLOXACIN/D5W 750 MG/150 ML 150 ML IVPB SCH (14:07)
--- NOTE | 2017-04-09 17:06 | Hospitalist Progress Note ---
Subjective Progress Notes Subjective The patient denies new complaints. Overall he feels better. He has much less sputum production. Physical Exam Vital Signs Date Time Temp Pulse Resp B/P (MAP) Pulse Ox O2 Delivery O2 Flow Rate FiO2 04/09/17 13:19 81 18 04/09/17 13:10 88 High-Flow Nasal Cannula 12.0 04/09/17 04:43 98.0 120/81 (94) 04/06/17 04:12 100.0 Intake and Output 04/10/17 07:00 Intake Total 450 ml Balance 450 ml Intake Oral 340 ml IV Total 110 ml General Appearance: Alert, Awake, No Acute Distress, Afebrile Neuro: No Gross deficits Eyes: PERRLA Cardiovascular: Regular Rate and Rhythm Respiratory: Other (Markedly decreased BS in bases. Clear upper lung baker. No wheezing today of significance.) GI: Soft and Non-Tender Extremities: Warm, Perfused Integumentary: Skin Intact without Lesion / Mass Psych: Appropriate Mood & Affect Result Diagram: 04/09/17 0553 04/09/17 0553 Assessment and Plan Problems: (1) Bacterial pneumonia Assessment & Plan: He did present with fever and cough. His chest x-ray did show an infiltrate in the right lung. He was on empiric treatment with Zosyn and levofloxacin, but his sputum culture grew an Enterobacter Cloacae Complex and MSSA. We switched to Unasyn and continued Levofloxacin based on sensitivities. His O2 requirement is variable at times, but still fairly high and not to baseline. Repeat CXR did not show any complicating factors. (2) COPD exacerbation Assessment & Plan: He is receiving nebulizers and IV steroids. (3) Hypotension Status: Acute Assessment & Plan: Resolved with IV fluids. Saline locked. (4) Erlwn-2-jyreofugtbtjjqlt deficiency Assessment & Plan: He does receive [facility]. Time Spent on Plan of Care: < 30 min Exam Sepsis Risk: No Definite Risk MACIEJ ALDRIDGE MD Apr 09, 2017 17:06
[2017-04-09 19:43] VITALS: BP 127/88
[2017-04-09 22:29] VITALS: BP 121/77
[2017-04-10] VITALS (7 sets, daily range): BP systolic 116–130; BP diastolic 64–89; BMI 25.1
[2017-04-10] MEDS: methylPREDNIS SUCC 125 MG/2ML IVP SCH ×2 (00:30→08:06)
[2017-04-10] MEDS: ALBUTEROL/IPRATROPIUM 3 ML NEB NEB SCH ×6 (01:03→21:43)
[2017-04-10] MEDS: AMPICILLIN/SULBACT (*) 3 GM VL 3 GM in NS(*) 0.9% 100 ML BAG 100 ML IVPB SCH (04:42)
[2017-04-10] MEDS: guaiFENesin 600 MG TABCR PO SCH ×2 (08:07→20:18)
[2017-04-10] MEDS: AMOX/CLAV 875 MG TAB PO SCH ×2 (09:41→17:24)
--- NOTE | 2017-04-10 11:02 | Hospitalist Progress Note ---
Subjective Progress Notes Subjective This patient was admitted for pneumonia. He had no acute events overnight, but still requires high oxygen levels. Patient Complains of: Cardiovascular: No: Chest Pain Respiratory: No: Shortness of Breath Physical Exam Vital Signs Date Time Temp Pulse Resp B/P (MAP) Pulse Ox O2 Delivery O2 Flow Rate FiO2 04/10/17 09:30 86 18 04/10/17 09:26 88 High-Flow Nasal Cannula 12.0 04/10/17 07:59 98.6 116/64 (81) Cardiovascular: Regular Rate and Rhythm Respiratory: Other (Bilateral crackles and rhonchi.) Extremities: No Edema Integumentary: No Cyanosis Result Diagram: 04/09/17 0553 04/09/17 0553 Item Value Date Time Gram Stain - Final Complete 04/04/17 1400 Sputum Expectorated Assessment and Plan Problems: (1) Bacterial pneumonia Assessment & Plan: He did present with fever and cough. His chest x-ray did show an infiltrate in the right lung. He was on empiric treatment with Zosyn and levofloxacin, but his sputum culture grew an Enterobacter Cloacae Complex and MSSA. We switched to Unasyn and continued Levofloxacin based on sensitivities. He has now completed a full course of the levofloxacin. We have converted him over to oral Augmentin and stopped all the IV antibiotics. (2) Acute respiratory failure Assessment & Plan: He did initial require Vapotherm, but is now being maintained on high flow nasal canula. He continues to require 15 liters after exertion. We will try to wean his oxygen requirements to levels that would be amenable to discharge. (3) COPD exacerbation Assessment & Plan: He has been receiving nebulizers and IV steroids. We converted him to oral prednisone today. (4) Hypotension Status: Acute Assessment & Plan: Resolved with IV fluids. (5) Ikcia-5-juirtmingcfwxcct deficiency Assessment & Plan: He does [facility]. Exam Sepsis Risk: No Definite Risk LIYAH BUSTAMANTE DO Apr 10, 2017 11:02
[2017-04-11] VITALS (33 sets, daily range): BP systolic 66–112; BP diastolic 40–85
[2017-04-11] MEDS: ALBUTEROL/IPRATROPIUM 3 ML NEB NEB SCH ×4 (01:32→12:49)
[2017-04-11] MEDS ORDERED: PROMETHAZINE 25 MG/ML 1 ML AMP IVP PRN (06:20)
[2017-04-11] MEDS: guaiFENesin 600 MG TABCR PO SCH ×2 (09:00→20:38)
[2017-04-11] MEDS ORDERED: predniSONE 20 MG TAB PO SCH (09:00)
[2017-04-11] MEDS ORDERED: LEVOFLOXACIN/D5W 750 MG/150 ML 150 ML IVPB ONE (09:25)
--- NOTE | 2017-04-11 11:14 | Hospitalist Progress Note ---
Subjective Progress Notes Subjective He developed diarrhea, nausea and vomiting. He thinks it is related to starting Augmentin. Still requiring high O2 amounts. Physical Exam Vital Signs Date Time Temp Pulse Resp B/P (MAP) Pulse Ox O2 Delivery O2 Flow Rate FiO2 04/11/17 10:05 High-Flow Nasal Cannula 9.0 04/11/17 09:42 98.6 103 12 112/77 (89) 84 Intake and Output 04/12/17 07:00 Intake Total 120 ml Balance 120 ml Intake Oral 120 ml # Voids 1 # Bowel Movements 4 General Appearance: Alert, Awake, Other (mild work of breathing) Respiratory: Clear to Auscultation GI: Soft and Non-Tender Result Diagram: 04/09/1755204/09/17552 Assessment and Plan Problems: (1) Bacterial pneumonia Assessment & Plan: He did present with fever and cough. His chest x-ray did show an infiltrate in the right lung. He was on empiric treatment with Zosyn and levofloxacin, but his sputum culture grew an Enterobacter Cloacae Complex and MSSA. We switched to Unasyn and continued Levofloxacin based on sensitivities. He will have completed a full course of the levofloxacin with one more dose today. We tried to convert him to oral Augmentin, but he has diarrhea and nausea. Will restart Unasyn for now. (2) Acute respiratory failure Assessment & Plan: He did initial require Vapotherm, but is now being maintained on high flow nasal canula. He continues to require 15 liters after exertion. We will try to wean his oxygen requirements to levels that would be amenable to discharge. (3) COPD exacerbation Assessment & Plan: He has been receiving nebulizers and IV steroids. We converted him to oral prednisone. Will try the Vest. Continue flutter therapy. (4) Hypotension Status: Resolved Assessment & Plan: Resolved with IV fluids. (5) Gimge-9-uanssnxogmsmfuwm deficiency Assessment & Plan: He does receive [facility] through [facility]. Exam Sepsis Risk: No Definite Risk ANSELMO MENEZES MD Apr 11, 2017 11:14
[2017-04-11] MEDS ORDERED: methylPREDNIS SUCC 125 MG/2ML IVP ONE (12:00)
[2017-04-11] MEDS: AMPICILLIN/SULBACT (*) 3 GM VL 3 GM in NS(*) 0.9% 100 ML BAG 100 ML IVPB SCH ×3 (12:16→23:28)
[2017-04-11] MEDS: LACTOBACILLUS ACIDOPHILUS TAB PO SCH ×2 (13:00→17:00)
[2017-04-11] MEDS ORDERED: NS(*) 0.9% 500 ML BAG 500 ML IV ONE ×2 (13:30→16:20)
--- NOTE | 2017-04-11 14:00 | EKG ---
FACILITY: [facility] PATIENT NAME: MARINO SUÁREZ : [id number] MR: [id number] V: [id number] EXAM DATE: ORDERING PHYSICIAN: ANSELMO MENEZES TECHNOLOGIST: Tera Delvalle Reason : Blood Pressure : / mmHG Vent. Rate : 115 BPM Atrial Rate : 115 BPM P-R Int : 128 ms QRS Dur : 068 ms QT Int : 308 ms P-R-T Axes : 060 056 074 degrees QTc Int : 426 ms Sinus tachycardia Low voltage QRS Nonspecific T wave abnormality Abnormal ECG No previous ECGs available Confirmed by ANSELMO MENEZES ([id number]) on 04/11/2017 6:35:13 PM Referred By: Confirmed By:ANSELMO MENEZES
[2017-04-11 14:41] LABS: PLATELET COUNT, AUTOMATED 71 K/uL (150-450)
[2017-04-11] MEDS: FLUCONAZOLE 200 MG/100ML PRMIX 100 ML IVPB SCH (14:52)
--- NOTE | 2017-04-11 15:53 | RADIOLOGY IMAGING REPORT ---
FACILITY: [facility] [place] PATIENT NAME: Robi Evans : 1950 MR: [id number] V: [id number] EXAM DATE: ORDERING PHYSICIAN: ANSELMO MENEZES TECHNOLOGIST: [place] [facility] [place]i [place] : 1950 Visit/Account:[id number] Date of Sevice: 04/11/2017 Examination: CHEST SINGLE AP Comparison: 04/08/2017 History: Hypoxia. Findings: Cardiac and hilar contour size is within normal limits and unchanged. Increased infrahilar parenchymal density and airway thickening. No pneumothorax or effusion. Osseous structures are intact . IMPRESSION: Increased infrahilar parenchymal density is favored to be a combination of atelectasis and bronchitis versus aspiration pneumonitis. Report Dictated By: Conner Garcia MD at 04/11/2017 3:46 PM Report E-Signed By: Conner Garcia MD at 04/11/2017 3:48 PM WSN:[id number]
[2017-04-11] MEDS ORDERED: VANCOMYCIN(*) 1 GM VIAL 2 GM in NS(*) 0.9% 250 ML BAG 250 ML IVPB ONE (16:00)
[2017-04-11] MEDS ORDERED: NS(*) 0.9% 1000 ML BAG 1,000 ML IV ONE ×2 (16:25→19:10)
[2017-04-11] MEDS ORDERED: DIGOXIN 0.5 MG/2 ML AMP IVP ONE ×2 (16:30→21:00)
[2017-04-11] MEDS: NS(*) 0.9% 500 ML BAG 500 ML IV PRN (16:34)
--- NOTE | 2017-04-11 16:49 | Miscellaneous Provider Note ---
Miscellaneous Provider Note Note He had a heart rate this morning of about 160bpm, but once on telemetry, he was down just above 100bpm and in a sinus rhythm. He had a low grade fever then and his sbp was in the 80's. He was given 500cc of NS. Once back in a lower heart rate, his sbp improved into the 90's. The patient was without symptoms ( i.e. cp/sob). Blood cultures were drawn. UA and UCx was done. CMP, Lactate and WBC were ordered. His lacate was a bit up and he has 7 percent bands on the peripheral smear. WBC is normal but increased from previous. CXR with possible new right basilar opacity. Sputum culture is showing budding yeast on the smear so yeast cultures have been ordered. He was restarted on Unasyn. Vancomycin and Fluconazole were started. This afternoon, he went back into a heart rate of 130's to 150's and his sbp is in the 80's. He is in atrial fibrillation. He is getting a liter of NS and digoxin 0.5 mg has been infused. The patient is still asymptomatic. However, he will be transferred to the ICU to be watched closely. ANSELMO MENEZES MD Apr 11, 2017 16:49
[2017-04-11] MEDS ORDERED: DILTIAZEM 5 MG/ML 5ML IVPUSH IVP ONE (17:40)
[2017-04-11] MEDS: LEVALBUTEROL 1.25 MG/3 ML NEB NEB SCH ×2 (17:49→21:49)
[2017-04-11] MEDS: DILTIAZEM HCL* 100 MG ADDVIAL 100 MG in NS(*) 0.9% 100 ML ADDVANT BAG 100 ML IV SCH (17:52)
--- NOTE | 2017-04-11 18:11 | EKG ---
FACILITY: [facility] PATIENT NAME: MARINO SUÁREZ : [id number] MR: [id number] V: [id number] EXAM DATE: ORDERING PHYSICIAN: ANSELMO MENEZES TECHNOLOGIST: Tera Delvalle Reason : Blood Pressure : / mmHG Vent. Rate : 143 BPM Atrial Rate : 040 BPM P-R Int : 000 ms QRS Dur : 068 ms QT Int : 294 ms P-R-T Axes : 000 056 044 degrees QTc Int : 453 ms Atrial fibrillation Low voltage QRS Nonspecific T wave abnormality Compared to previous, now in atrial fibrillation Confirmed by ANSELMO MENEZES ([id number]) on 04/11/2017 6:38:21 PM Referred By: Confirmed By:ANSELMO MENEZES
--- NOTE | 2017-04-11 23:35 | Miscellaneous Provider Note ---
Miscellaneous Provider Note Note The patient was moved to the ICU. He is on the Vapo-therm to keep is saturations up. He reports that he is breathing more comfortably than from the afternoon/evening. Because his respiratory status is tenuous, cardioversion with sedation has been reserved for only if he becomes unstable. He was started on a diltiazem drip and has received another dose of digoxin. His heart rate is about 110 bpm. MAP>65. Item Value Date Time Lactate 2.7 mmol/L H 04/11/17 221 Lactate 2.8 mmol/L H 04/11/17 1820 Lactate 2.6 mmol/L H 04/11/17 1425 Creatinine 0.90 mg/dl 04/11/17 1425 Creatinine 1.00 mg/dl 04/11/17 1820 Creatinine 1.00 mg/dl 04/11/17 2219 Blood Urea Nitrogen 32 mg/dl H 04/11/17 2219 Blood Urea Nitrogen 32 mg/dl H 04/11/17 1820 Blood Urea Nitrogen 31 mg/dl H 04/11/17 1425 Troponin I 0.051 ng/ml 04/11/17 1820 Will give another dose of digoxin and continue the diltiazem drip. ANSELMO MENEZES MD Apr 11, 2017 23:35
[2017-04-12] VITALS (83 sets, daily range): BP systolic 69–133; BP diastolic 49–124
[2017-04-12] MEDS ORDERED: DIGOXIN 0.5 MG/2 ML AMP IVP ONE (01:00)
[2017-04-12] MEDS: LEVALBUTEROL 1.25 MG/3 ML NEB NEB SCH ×6 (01:21→22:00)
[2017-04-12] MEDS: DILTIAZEM HCL* 100 MG ADDVIAL 100 MG in NS(*) 0.9% 100 ML ADDVANT BAG 100 ML IV SCH ×2 (02:10→20:45)
[2017-04-12] MEDS ORDERED: SALINE 0.65% NAS SPR 44 ML BTL PRN (02:20)
[2017-04-12] MEDS ORDERED: HYPROMELLOSE 0.4% LUB 15ML BTL OD PRN (02:20)
[2017-04-12] MEDS: VANCOMYCIN(*) 1 GM VIAL 1 GM, VANCOMYCIN (*) 0.5 GM VIAL 0.25 GM in NS(*) 0.9% 250 ML B... IVPB SCH ×2 (04:14→16:18)
[2017-04-12 05:35] LABS: PLATELET COUNT, AUTOMATED 53 K/uL (150-450)
[2017-04-12] MEDS: AMPICILLIN/SULBACT (*) 3 GM VL 3 GM in NS(*) 0.9% 100 ML BAG 100 ML IVPB SCH ×4 (05:53→23:39)
--- NOTE | 2017-04-12 08:40 | Hospitalist Progress Note ---
Subjective Progress Notes Subjective The patient states his work of breathing is much less today. He is still a bit nauseated. Patient Complains of: Neurological: Weakness Gastrointestinal: Nausea Physical Exam Vital Signs Date Time Temp Pulse Resp B/P (MAP) Pulse Ox O2 Delivery O2 Flow Rate FiO2 04/12/17 07:36 40.0 100.0 04/12/17 07:36 98 04/12/17 07:30 97.5 28 85/76 (79) 83 Vapotherm General Appearance: Alert, Awake, Other (Mild increased work of breathing.) Neuro: No Gross deficits Eyes: PERRLA Cardiovascular: Other (Irregularly irregular.) Respiratory: Other (Mild increased work of breathing. Decreased BS throughout. No wheezing anteriorly.) GI: Soft and Non-Tender Extremities: Warm, Perfused, Other (No edeam.) Integumentary: Skin Intact without Lesion / Mass Psych: Appropriate Mood & Affect Result Diagram: 04/12/1752504/12/17525 Assessment and Plan Problems: (1) Atrial fibrillation with RVR Status: Acute Assessment & Plan: The patient developed atrial fibrillation with RVR. With this he was hypotensive and had increased work of breathing. He was loaded with digoxin and his HR improved. He is now on a low dose diltiazem gtt. His heart rate is currently in the 80s. He is maintaining a MAP in the 70s. (2) Bacterial pneumonia Assessment & Plan: He did present with fever and cough. His chest x-ray did show an infiltrate in the right lung. He was on empiric treatment with Zosyn and levofloxacin, but his sputum culture grew an Enterobacter Cloacae Complex and MSSA. We switched to Unasyn and continued Levofloxacin based on sensitivities. He has completed a full course of the levofloxacin. We tried to convert him to oral Augmentin, but he has diarrhea and nausea. Unasyn was restarted. Repeat sputum culture showed 4+ budding yeast. Fluconazole has been added. The patient developed recurrent fever so Vancomycin was added as well. He is due for a Vanco trough at 1500. (3) Acute respiratory failure Assessment & Plan: He did initial require Vapotherm, and then was maintained on high flow nasal canula. Last evening his respiratory status worsened acutely and he was transferred to ICU and placed back on Vapotherm at 100%. He is saturating in the high 80s. His work of breathing is much improved. Will monitor closely. (4) COPD exacerbation Assessment & Plan: He has been receiving nebulizers and IV steroids. We converted him to oral prednisone. Vest and flutter therapy have been ordered. As he is nauseated and unable to take the prednisone, will switch him back to Solu Medrol. (5) Hypotension Status: Resolved Assessment & Plan: He developed recurrent low BPs due to a fib. He was loaded with digoxin and his HR improved. He is now on a low dose of diltiazem and maintaining a MAP in the 70s. (6) Tovqn-5-whlbhcnpdzhgkvae deficiency Assessment & Plan: He does receive [facility] through the [facility]. Time Spent on Plan of Care: < 30 min Exam Sepsis Risk: Severe Sepsis Risk MACIEJ ALDRIDGE MD Apr 12, 2017 08:40
[2017-04-12] MEDS: methylPREDNIS SUCC 125 MG/2ML IVP SCH ×2 (08:54→20:45)
[2017-04-12] MEDS: LACTOBACILLUS ACIDOPHILUS TAB PO SCH ×3 (08:54→16:17)
[2017-04-12] MEDS: guaiFENesin 600 MG TABCR PO SCH ×2 (08:54→20:45)
[2017-04-12] MEDS: FLUCONAZOLE 200 MG/100ML PRMIX 100 ML IVPB SCH (13:33)
[2017-04-12] MEDS ORDERED: NS(*) 0.9% 250 ML BAG 250 ML ONE (13:46)
[2017-04-13] VITALS (56 sets, daily range): BP systolic 88–116; BP diastolic 57–86; Ht 182.9 cm; Wt 96.6 kg
[2017-04-13] MEDS: LEVALBUTEROL 1.25 MG/3 ML NEB NEB SCH ×6 (01:25→21:20)
[2017-04-13] MEDS: VANCOMYCIN(*) 1 GM VIAL 1 GM, VANCOMYCIN (*) 0.5 GM VIAL 0.25 GM in NS(*) 0.9% 250 ML B... IVPB SCH ×2 (03:48→16:11)
[2017-04-13] MEDS: AMPICILLIN/SULBACT (*) 3 GM VL 3 GM in NS(*) 0.9% 100 ML BAG 100 ML IVPB SCH ×4 (05:43→23:56)
[2017-04-13 06:03] LABS: PLATELET COUNT, AUTOMATED 46 K/uL (150-450)
[2017-04-13] MEDS: guaiFENesin 600 MG TABCR PO SCH ×2 (09:34→20:44)
[2017-04-13] MEDS: LACTOBACILLUS ACIDOPHILUS TAB PO SCH ×3 (09:34→17:35)
[2017-04-13] MEDS: DIGOXIN 0.125 MG TAB PO SCH (09:35)
[2017-04-13] MEDS: methylPREDNIS SUCC 125 MG/2ML IVP SCH ×2 (09:38→20:44)
--- NOTE | 2017-04-13 10:44 | Hospitalist Progress Note ---
Subjective Progress Notes Subjective This patient was admitted for pneumonia. He was transferred back to the ICU secondary to atrial fibrillation over the weekend. Patient Complains of: Cardiovascular: No: Chest Pain Respiratory: No: Shortness of Breath Physical Exam Vital Signs Date Time Temp Pulse Resp B/P (MAP) Pulse Ox O2 Delivery O2 Flow Rate FiO2 04/13/17 10:00 119 04/13/17 09:16 83 Vapotherm 30.0 04/13/17 09:13 20 04/13/17 09:13 100.0 04/13/17 06:00 106/67 (80) 04/13/17 03:45 98.2 Intake and Output 04/14/17 07:00 Intake Total 240 ml Balance 240 ml Intake Oral 240 ml # Voids 1 # Bowel Movements 1 Cardiovascular: Other (Irregular.) Respiratory: Clear to Auscultation Extremities: No Edema Integumentary: No Cyanosis Result Diagram: 04/13/17 0514 04/13/17 0514 Item Value Date Time Gram Stain - Final Complete 04/11/17 1000 Sputum Assessment and Plan Problems: (1) Atrial fibrillation with RVR Status: Acute Assessment & Plan: He did develop atrial fibrillation with a rapid ventricular rate. He was loaded with digoxin and placed on a diltiazem infusion. He remains on a diltiazem infusion today. His heart rate remains in the 120-130 range. We will continue the infusion for now. An echocardiogram is pending. We have not started anticoagulation secondary to his low platelet count. (2) Bacterial pneumonia Assessment & Plan: His chest x-ray did show an infiltrate in the right lung. He was on empiric treatment with Zosyn and levofloxacin, but his sputum culture grew an Enterobacter Cloacae Complex and MSSA. We switched to Unasyn and continued Levofloxacin based on sensitivities. He has completed a full course of the levofloxacin. He developed another fever over the weekend. A second sputum culture showed 4+ yeast. He is currently on treatment with Unasyn, vancomycin, and fluconazole. (3) Acute respiratory failure Assessment & Plan: He has required high flow oxygen with the Vapotherm. We will try to wean his requirements through today. (4) COPD exacerbation Assessment & Plan: He has been receiving nebulizers and IV steroids. (5) Hypotension Status: Resolved Assessment & Plan: He developed recurrent low BPs due to a fib. He was loaded with digoxin and his HR improved. He is now on a low dose of diltiazem and maintaining a MAP in the 70s. (6) Yuptq-6-guzasrwossrrsdzn deficiency Assessment & Plan: He does receive regular infusions through the [facility]. Exam Sepsis Risk: Sepsis Risk LIYAH BUSTAMANTE DO Apr 13, 2017 10:44
[2017-04-13] MEDS: DILTIAZEM HCL* 100 MG ADDVIAL 100 MG in NS(*) 0.9% 100 ML ADDVANT BAG 100 ML IV SCH (13:50)
[2017-04-13] MEDS: FLUCONAZOLE 200 MG/100ML PRMIX 100 ML IVPB SCH (14:29)
[2017-04-13] MEDS: NS(*) 0.9% 500 ML BAG 500 ML IV PRN (15:11)
[2017-04-14] VITALS (42 sets, daily range): BP systolic 89–123; BP diastolic 55–91
[2017-04-14] MEDS: DILTIAZEM HCL* 100 MG ADDVIAL 100 MG in NS(*) 0.9% 100 ML ADDVANT BAG 100 ML IV SCH ×2 (01:27→23:37)
[2017-04-14] MEDS: LEVALBUTEROL 1.25 MG/3 ML NEB NEB SCH ×6 (02:00→22:00)
[2017-04-14] MEDS: VANCOMYCIN(*) 1 GM VIAL 1 GM, VANCOMYCIN (*) 0.5 GM VIAL 0.25 GM in NS(*) 0.9% 250 ML B... IVPB SCH (03:31)
[2017-04-14] MEDS: NS(*) 0.9% 500 ML BAG 500 ML IV PRN ×2 (05:50→20:19)
[2017-04-14] MEDS: AMPICILLIN/SULBACT (*) 3 GM VL 3 GM in NS(*) 0.9% 100 ML BAG 100 ML IVPB SCH ×4 (05:50→23:37)
[2017-04-14 06:12] LABS: PLATELET COUNT, AUTOMATED 58 K/uL (150-450)
[2017-04-14] MEDS ORDERED: FUROSEMIDE 20 MG/2 ML VIAL IVP ONE (07:40)
[2017-04-14] MEDS ORDERED: LOPERAMIDE HCL 2 MG CAP PO ONE (07:40)
[2017-04-14] MEDS: POTASSIUM CHL 10 MEQ TABCR PO SCH ×2 (08:38→17:05)
[2017-04-14] MEDS: LACTOBACILLUS ACIDOPHILUS TAB PO SCH ×3 (08:38→17:04)
[2017-04-14] MEDS: DIGOXIN 0.125 MG TAB PO SCH (08:38)
[2017-04-14] MEDS: guaiFENesin 600 MG TABCR PO SCH ×2 (08:38→20:19)
[2017-04-14] MEDS: methylPREDNIS SUCC 125 MG/2ML IVP SCH ×2 (08:39→20:20)
[2017-04-14] MEDS ORDERED: DILTIAZEM CD 180 MG CAPCR PO SCH (09:00)
[2017-04-14] MEDS ORDERED: [UNRECOGNIZED DRUG - MIXTURE] IVPB ONE (10:00)
--- NOTE | 2017-04-14 10:45 | Hospitalist Progress Note ---
Subjective Progress Notes Subjective Still having loose stools. Breathing is a bit better. Physical Exam Vital Signs Date Time Temp Pulse Resp B/P (MAP) Pulse Ox O2 Delivery O2 Flow Rate FiO2 04/14/17 10:25 116 04/14/17 09:25 20 04/14/17 09:20 88 High-Flow Nasal Cannula 15.0 04/14/17 09:00 123/87 (99) 04/14/17 08:00 97.2 100.0 Intake and Output 04/15/17 07:00 Intake Total 350 ml Balance 350 ml Intake Oral 240 ml IV Total 110 ml # Bowel Movements 1 General Appearance: Alert, Awake, No Acute Distress Cardiovascular: Other (distant heart tones. Irreg, irreg) Respiratory: Clear to Auscultation Extremities: No Edema Result Diagram: 04/14/1752604/14/17526 Assessment and Plan Problems: (1) Atrial fibrillation with RVR Status: Acute Assessment & Plan: He did develop atrial fibrillation with a rapid ventricular rate. He was loaded with digoxin and placed on a diltiazem infusion. He remains on a diltiazem infusion today. His heart rate remains in the 90-110 range. Will switch to oral diltiazem. 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 We have not started anticoagulation secondary to his low platelet count. (2) Bacterial pneumonia Assessment & Plan: His chest x-ray did show an infiltrate in the right lung. He was on empiric treatment with Zosyn and levofloxacin, but his sputum culture grew an Enterobacter Cloacae Complex and MSSA. We switched to Unasyn and continued Levofloxacin based on sensitivities. He has completed a full course of the levofloxacin. He developed another on 04/11. A second sputum culture showed 4+ yeast. He is currently on treatment with Unasyn, vancomycin, and fluconazole. Will stop vancomycin. (3) Acute respiratory failure Assessment & Plan: He has required high flow oxygen with the Vapotherm. We will try to wean his requirements through today. Will try Lasix 10mg to "dry out the lungs". (4) COPD exacerbation Assessment & Plan: He has been receiving nebulizers and IV steroids. (5) Hypotension Status: Resolved Assessment & Plan: He developed recurrent low BPs due to a fib. He was loaded with digoxin and his HR improved. He is now on a low dose of diltiazem and maintaining a MAP in the 70s. (6) Qeqxy-2-ktyohjradjwhddrb deficiency Assessment & Plan: He does receive regular infusions through the [facility]. Exam Sepsis Risk: No Definite Risk ANSELMO MENEZES MD Apr 14, 2017 10:45
[2017-04-14] MEDS: LOPERAMIDE HCL 2 MG CAP PO PRN ×3 (11:15→18:05)
[2017-04-14] MEDS: FLUCONAZOLE 200 MG/100ML PRMIX 100 ML IVPB SCH (14:05)
[2017-04-14] MEDS ORDERED: CHOLESTYRAMINE 4 GM POWD PO ONE (14:05)
--- NOTE | 2017-04-14 17:13 | RADIOLOGY IMAGING REPORT ---
FACILITY: [facility] - [place] PATIENT NAME: MARINO SUÁREZ : [id number] MR: [id number] V: [id number] EXAM DATE: ORDERING PHYSICIAN: ANSELMO MENEZES TECHNOLOGIST: Madeline Lopez EXAMINATION:TWO-DIMENSIONAL ECHOCARDIOGRAPH REASON:ATRIAL FIBRILLATION 2D Measurements (normal values in centimeters) LV endLV endRV endVent.LV PostAorticLeftPercent DiastolicSystolicDiastolicSeptumWallRootAtriumShortening (3.5-5.7)(0.9-2.6)(0.6-1.1)(0.6-1.1)(2.0-3.7)(1.9-4.0)(25-35%) [id number]% STROKE VOLUME: 51 mL. ESTIMATED EJECTION FRACTION:73% PARASTERNAL LONG AXIS: The right ventricle appears to be enlarged. Other chamber sizes are normal. There is mild concentric left ventricular thickening but no evidence for any outflow tract obstruction. The patient appears to be in atrial fibrillation with a rapid ventricular response. No thrombi were noted and the left atrial appendage is not seen. Color examination of the aortic valve was unremarkable. Color examination of the mitral valve reveals a trace of mitral insufficiency present. No wall motion abnormalities were noted. PARASTERNAL SHORT AXIS: Overall left ventricular function appears to be normal. No wall motion abnormalities are noted. The right ventricle appears to be enlarged. Aortic valve was trileaflet in configuration and appears to open normally with minimal aortic sclerosis. Color examination of the pulmonic valve reveals a trace of pulmonic insufficiency. There is a trace to mild amount of tricuspid insufficiency noted. APICAL FOUR AND TWO CHAMBER: Left ventricular function appears to be normal. Right sided heart chambers appear to be enlarged. Left sided heart chambers are normal in size. The mitral valve and tricuspid valve both appear to open normally. Color examination of the mitral valve reveals a trace to mild amount of mitral insufficiency. Color examination of the tricuspid valve reveals a mild amount of tricuspid insufficiency. Tricuspid regurgitation V-max is measured at 2.78 m/sec. Aortic valve area was measured within normal range at 2.8 cm2. SUBCOSTAL VIEW: Technically difficult but no pericardial effusion was noted. The ascending aorta is slightly enlarged at 3.9 cm. OVERALL IMPRESSION: 1. Normal left ventricular ejection fraction of 73%. We were unable to accurately characterize the diastolic function as the patient is in atrial fibrillation. No thrombi were noted but the left atrial appendage was not seen. 2. Right sided heart chamber enlargement with the left sided chambers being normal. 3. Mild concentric left ventricular thickening, no evidence for any outflow tract obstruction. 4. A trileaflet aortic valve with mild aortic sclerosis . 5. A trace of pulmonic insufficiency. 6. Trace to mild amount of both mitral and tricuspid insufficiency. Estimated right ventricular systolic pressure within normal range at 34 mmHg. 7. A trace of aortic insufficiency present. Dictated by: Baljeet Lamb M.D. on 04/13/2017 at 18:30 Transcribed by: MADINA on 04/14/2017 at 11:27 Approved by: Baljeet Lamb M.D. on 04/14/2017 at 17:12 [facility]
[2017-04-15] VITALS (20 sets, daily range): BP systolic 86–116; BP diastolic 60–89
[2017-04-15] MEDS: LOPERAMIDE HCL 2 MG CAP PO PRN ×4 (01:09→19:10)
[2017-04-15] MEDS: LEVALBUTEROL 1.25 MG/3 ML NEB NEB SCH ×7 (02:00→22:17)
[2017-04-15] MEDS: AMPICILLIN/SULBACT (*) 3 GM VL 3 GM in NS(*) 0.9% 100 ML BAG 100 ML IVPB SCH ×4 (05:44→23:15)
[2017-04-15 06:18] LABS: PLATELET COUNT, AUTOMATED 42 K/uL (150-450)
--- NOTE | 2017-04-15 06:53 | RADIOLOGY IMAGING REPORT ---
FACILITY: [facility] - [place] PATIENT NAME: Robi Evans : 1950 MR: [id number] V: [id number] EXAM DATE: ORDERING PHYSICIAN: ANSELMO MENEZES TECHNOLOGIST: Location: [facility] Patient: Robi Evans : 1950 Visit/Account:[id number] Date of Sevice: 04/15/2017 EXAMINATION: Portable AP Chest 04/15/2017 6:00 AM HISTORY: pneumonia COMPARISON: 04/11/2017 FINDINGS: Cardiomediastinal contours: Stable heart size. Aorta is minimally atherosclerotic. Lungs and pleura: Infrahilar airspace opacity in shown bilaterally. Small bilateral effusions. Bones/soft tissues: Normal Cardiac leads are present. IMPRESSION: Small bilateral effusions. Airspace opacity in both bases could be infiltrate or atelecta sis. Report Dictated By: Oleksandr Gomez MD at 04/15/2017 6:47 AM Report E-Signed By: Oleksandr Gomez MD at 04/15/2017 6:48 AM WSN:[id number]
[2017-04-15] MEDS ORDERED: KCL (*) 20 MEQ/100 ML PREMIX 100 ML IV ONE ×2 (08:05→14:00)
--- NOTE | 2017-04-15 08:21 | Hospitalist Progress Note ---
Subjective Progress Notes Subjective He reports feeling "pretty good". Physical Exam Vital Signs Date Time Temp Pulse Resp B/P (MAP) Pulse Ox O2 Delivery O2 Flow Rate FiO2 04/15/17 06:21 77 04/15/17 06:00 97.5 17 102/76 (85) 84 High-Flow Nasal Cannula 12.0 04/14/17 08:00 100.0 General Appearance: Alert, Awake Cardiovascular: Other (Irregular with distant tones) Respiratory: Other (Fairly clear with diminished breath sounds at bases) Chest: No Tenderness GI: Soft and Non-Tender Extremities: Warm, Perfused, Edema (1+ dependent mainly in posterior thighs/ buttocks) Psych: Alert & Oriented X3 Result Diagram: 04/15/17 0557 04/15/17 0557 Assessment and Plan Problems: (1) Atrial fibrillation with RVR Status: Acute Assessment & Plan: He developed atrial fibrillation with rapid ventricular rate. He was loaded with digoxin and placed on a diltiazem infusion. He remains on a diltiazem infusion today. His heart rate has been dipping down into the 50-70 range. Will switch to oral diltiazem today. His echocardiogram showed preserved EF (73%). We have not started anticoagulation secondary to his low platelet count. Will also need to evaluate his hepatic function given his alpha 1 anti-trypsin deficiency. (2) Bacterial pneumonia Assessment & Plan: His chest x-ray did show an infiltrate in the right lung. He was on empiric treatment with Zosyn and levofloxacin, but his sputum culture grew an Enterobacter Cloacae Complex and MSSA. We switched to Unasyn and continued Levofloxacin based on sensitivities. He has completed a full course of the levofloxacin. He developed increased respiratory difficulties on 04/11. A second sputum culture showed 4+ yeast. He is currently on treatment with Unasyn and fluconazole. He was on vancomycin until culture results were available. (3) COPD exacerbation Assessment & Plan: Due to hzjce-7-veuhakyefqm deficiency. He is on replacement therapy. He has been receiving nebulizers and IV steroids. (4) Hypotension Status: Resolved Assessment & Plan: He developed recurrent low BPs due to a-fib and medications for treatment. He was loaded with digoxin and his HR improved. He is now on a low dose of IV diltiazem and maintaining a MAP in the 70s. Will make the switch to oral diltiazem. Watch BPs. (5) Jxltq-5-orstofnglhmwuomf deficiency Assessment & Plan: [facility]. It appears he may have some hepatic dysfunction secondary to this as well. Will check protime/INR. Will also check US or CT scan of liver/spleen to evaluate. (6) Diarrhea Status: Acute Assessment & Plan: Probably due to antibiotics (Augmentin). Will re-check c. difficile as well. Treat as needed. (7) Hypokalemia Status: Acute Assessment & Plan: Due to diarrhea and diuretics. Will replace with IV supplement. Watch labs. Exam Sepsis Risk: No Definite Risk CJ ALDRIDGE MD Apr 15, 2017 08:21
[2017-04-15] MEDS: DILTIAZEM CD 120 MG CAPCR PO SCH (08:37)
[2017-04-15] MEDS: DIGOXIN 0.125 MG TAB PO SCH (08:38)
[2017-04-15] MEDS: methylPREDNIS SUCC 125 MG/2ML IVP SCH ×2 (08:38→20:14)
[2017-04-15] MEDS: LACTOBACILLUS ACIDOPHILUS TAB PO SCH ×3 (08:38→17:55)
[2017-04-15] MEDS: guaiFENesin 600 MG TABCR PO SCH ×2 (08:39→20:14)
[2017-04-15] MEDS: KCL/NS* 20 MEQ/1000 ML PREMIX 1,000 ML IV PRN (08:39)
[2017-04-15 08:49] LABS: INR 1.44
[2017-04-15] MEDS ORDERED: DILTIAZEM CD 180 MG CAPCR PO SCH (09:00)
--- NOTE | 2017-04-15 09:27 | Antimicrobial Stewardship ---
Antimicrobial Stewardship MD Service: Hospitalist Indications: CAP Antimicrobial Allergies Started on Augmentin-- developed severe nausea/vomiting and diarrhea--did not tolerate Antimicrobial History Upon Admission on 04/04: Started Levofloxacin and Zosyn on 04/04 -- received zosyn from 04/04 to 04/07, and levofloxacin 04/04 - 04/11 Antimicrobial Used 04/04: zosyn + levofloxacin 04/11: Unasyn + fluconazole + vancomycin (vanco stopped on 04/14/17) Duration of Therapy: 10-14 Days Start Date: Apr 11, 2017 Height (Calculated Centimeters: [phone] Weight (Calculated Kilograms): 84.000 Creatinine Cl Scr = 0.8, CrCl = 100 ml/min Culture Results: Yes (04/04/17: Blood Cx x 2 (-), 04/04/17: Sputum (+) enterobacter cloacae, MSSA, rare mold 04/11/17: Blood, Urine culture (-), sputum cx (+)--yeast and rare mold) Recommendations re: Culture Continue Unasyn, consider switching fluconazole to an antifungal with broader coverage for rare mold (culture results will be back in 4-5 weeks) Eligable for PO Conversion: No Comments Continue Unasyn 3g IV q6h (today 04/15/17 is day 9 of therapy), consider 10-14 day course. Consider switching fluconazole to add coverage for rare fungal growth (aspergillus?). Consider broadening antifungal coverage with voriconazole if clinical suspicion is high. May also consider galactomanan EIA of the serum (not specific to aspergillus per say). Gabriela Harrell, PharmD, BCOP GABRIELA HARRELL Apr 15, 2017 08:29
[2017-04-15] MEDS ORDERED: IOPAMIDOL 76% 75 ML INFUS BTL 0 ML ONE (10:31)
[2017-04-15] MEDS ORDERED: NS 0.9% 50 ML VIAL 0 ML ONE (10:32)
[2017-04-15] MEDS: FLUCONAZOLE 200 MG/100ML PRMIX 100 ML IVPB SCH (15:01)
--- NOTE | 2017-04-15 19:44 | RADIOLOGY IMAGING REPORT ---
[facility] PATIENT NAME: Robi Evans : 1950 MR: [id number] V: [id number] EXAM DATE: ORDERING PHYSICIAN: CJ ALDRIDGE TECHNOLOGIST: Location: [facility] Patient: Robi Evans : 1950 Visit/Account:[id number] Date of Sevice: 04/15/2017 Abdominal ultrasound Indication: Alpha I antitrypsin deficiency. Possible cirrhosis. Comparison: None Findings: The liver is dense, heterogeneous with microlobulations consistent with underlying hepatocellular dis ease and cirrhosis. Liver measures 16 cm. No focal mass or intrahepatic ductal dilatation. Portal vein is patent with normal directional flow. Moderate amount of ascites. Gallbladder wall is thickened measuring approximately 5 mm. This is nonspecific in the setting of ci rrhosis but can be an indicator of portal hypertension. Negative sonographic Quick's sign. Common b ile duct measures 4.1 mm. Due to bowel gas, the pancreas is obscured. Abdominal aorta and IVC are patent and unremarkable. Right kidney measures 10.5 x 5.2 x 4.5 cm. IMPRESSION: 1. The liver is coarse, heterogeneous and microlobulated, consistent with underlying hepatocellular disease and cirrhosis. 2. Mild gallbladder wall thickening which is nonspecific in setting of cirrhosis but can be an indic ation of portal hypertension. 3. Moderate amount of intra-abdominal ascites. Report Dictated By: Jorge Calix MD at 04/15/2017 7:36 PM Report E-Signed By: Jorge Calix MD at 04/15/2017 7:41 PM WSN:[id number]
[2017-04-16] VITALS (17 sets, daily range): BP systolic 93–135; BP diastolic 73–92
[2017-04-16] MEDS: LOPERAMIDE HCL 2 MG CAP PO PRN (01:48)
[2017-04-16] MEDS: AMPICILLIN/SULBACT (*) 3 GM VL 3 GM in NS(*) 0.9% 100 ML BAG 100 ML IVPB SCH (05:21)
[2017-04-16] MEDS: LEVALBUTEROL 1.25 MG/3 ML NEB NEB SCH ×5 (05:57→21:21)
[2017-04-16 06:25] LABS: PLATELET COUNT, AUTOMATED 37 K/uL (150-450)
[2017-04-16] MEDS: KCL/NS* 20 MEQ/1000 ML PREMIX 1,000 ML IV PRN (06:34)
[2017-04-16] MEDS ORDERED: FUROSEMIDE 20 MG/2 ML VIAL IVP ONE (08:00)
[2017-04-16] MEDS: methylPREDNIS SUCC 125 MG/2ML IVP SCH (08:37)
[2017-04-16] MEDS: LACTOBACILLUS ACIDOPHILUS TAB PO SCH ×3 (08:40→18:29)
[2017-04-16] MEDS: DILTIAZEM CD 120 MG CAPCR PO SCH (08:40)
[2017-04-16] MEDS: DIGOXIN 0.125 MG TAB PO SCH (08:40)
[2017-04-16] MEDS: guaiFENesin 600 MG TABCR PO SCH ×2 (08:42→20:45)
[2017-04-16] MEDS: SPIRONOLACTONE 25 MG TAB PO SCH ×2 (08:42→13:59)
[2017-04-16] MEDS: FUROSEMIDE 40 MG/4 ML VIAL IVP SCH ×3 (08:44→16:07)
--- NOTE | 2017-04-16 08:54 | Hospitalist Progress Note ---
Subjective Progress Notes Subjective This patient was admitted for pneumonia. He had no acute events overnight. Patient Complains of: Cardiovascular: No: Chest Pain Respiratory: No: Shortness of Breath Physical Exam Vital Signs Date Time Temp Pulse Resp B/P (MAP) Pulse Ox O2 Delivery O2 Flow Rate FiO2 04/16/17 07:22 104 04/16/17 07:15 84 High-Flow Nasal Cannula 12.0 04/16/17 06:02 21 110/84 (93) 04/16/17 04:30 100.0 04/16/17 04:00 97.2 Cardiovascular: Regular Rate and Rhythm Respiratory: Other (Diminished breath sounds bilateral.) Extremities: Edema Integumentary: No Cyanosis Result Diagram: 04/16/1752904/16/17529 Assessment and Plan Problems: (1) Atrial fibrillation with RVR Status: Acute Assessment & Plan: He developed atrial fibrillation with rapid ventricular rate. He was loaded with digoxin and placed on a diltiazem infusion. He was converted to oral diltiazem yesterday, and he has tolerated this well. His echocardiogram showed a preserved ejection fraction (73%). We have not started anticoagulation secondary to his low platelet count. (2) Bacterial pneumonia Assessment & Plan: His chest x-ray did show an infiltrate in the right lung. He was on empiric treatment with Zosyn and levofloxacin, but his sputum culture grew an Enterobacter Cloacae Complex and MSSA. We switched to Unasyn and continued Levofloxacin based on sensitivities. He has completed a full course of the levofloxacin and Unasyn. He developed increased respiratory difficulties on 04/11. A second sputum culture showed 4+ yeast. He remains on fluconazole. (3) COPD exacerbation Assessment & Plan: Due to ujwgp-1-rvpfhjnahmx deficiency. He is on replacement therapy. He has been receiving nebulizers and IV steroids. We will convert him to oral prednisone today. (4) Hypotension Status: Resolved Assessment & Plan: Resolved. (5) Lpevh-3-yrwblnraskgesmqh deficiency Assessment & Plan: [facility]. It appears he may have some hepatic dysfunction secondary to this as well. A liver ultrasound was consistent with cirrhosis. (6) Diarrhea Status: Acute Assessment & Plan: Probably due to antibiotics (Augmentin). Will re-check c. difficile as well. Treat as needed. (7) Hypokalemia Status: Acute Assessment & Plan: Resolved with supplementation. (8) Hypoxia Assessment & Plan: He has required increased amounts of oxygen and Vapotherm. We have been able to wean him down to 5 liters without a significant change in his pulse oximetry. Exam Sepsis Risk: Severe Sepsis Risk LIYAH BUSTAMANTE DO Apr 16, 2017 08:54
[2017-04-16] MEDS: predniSONE 20 MG TAB PO SCH (09:00)
[2017-04-16] MEDS: FLUCONAZOLE 200 MG/100ML PRMIX 100 ML IVPB SCH (14:20)
[2017-04-17] VITALS (12 sets, daily range): BP systolic 97–116; BP diastolic 76–86
[2017-04-17] MEDS: LEVALBUTEROL 1.25 MG/3 ML NEB NEB SCH ×2 (02:00→05:27)
[2017-04-17 05:31] LABS: PLATELET COUNT, AUTOMATED 37 K/uL (150-450)
[2017-04-17] MEDS: KCL/NS* 20 MEQ/1000 ML PREMIX 1,000 ML IV PRN (05:54)
[2017-04-17] MEDS ORDERED: KCL (*) 20 MEQ/100 ML PREMIX 100 ML IV ONE (07:25)
[2017-04-17] MEDS ORDERED: LEVALBUTEROL 1.25 MG/3 ML NEB NEB PRN (07:40)
[2017-04-17] MEDS: POTASSIUM CHL PWDR 20 MEQ PKT PO SCH ×2 (08:58→17:15)
[2017-04-17] MEDS: LACTOBACILLUS ACIDOPHILUS TAB PO SCH ×3 (08:58→17:15)
[2017-04-17] MEDS: predniSONE 20 MG TAB PO SCH (08:58)
[2017-04-17] MEDS: guaiFENesin 600 MG TABCR PO SCH ×2 (08:59→21:46)
[2017-04-17] MEDS: FUROSEMIDE 20 MG TAB PO SCH (08:59)
[2017-04-17] MEDS: DILTIAZEM CD 120 MG CAPCR PO SCH (08:59)
[2017-04-17] MEDS: DIGOXIN 0.125 MG TAB PO SCH (08:59)
[2017-04-17] MEDS: SPIRONOLACTONE 25 MG TAB PO SCH (08:59)
--- NOTE | 2017-04-17 10:34 | Hospitalist Progress Note ---
Subjective Progress Notes Subjective Overall, he reports feeling improved. He has tolerated low levels of activity. His oxygen requirement to maintain saturations in 85-88% range are now 6L. Physical Exam Vital Signs Date Time Temp Pulse Resp B/P (MAP) Pulse Ox O2 Delivery O2 Flow Rate FiO2 04/17/17 08:59 103 04/17/17 08:00 97.4 25 116/78 (91) 85 High-Flow Nasal Cannula 6.0 04/16/17 04:30 100.0 Intake and Output 04/18/17 07:00 Intake Total 0 ml Balance 0 ml Intake Oral 0 ml # Voids 1 # Bowel Movements 1 General Appearance: Alert, Awake Cardiovascular: Regular Rate and Rhythm Respiratory: Other (Decreased breath sounds with just a few scattered rhonchi) GI: Soft and Non-Tender Extremities: Warm, Perfused, Edema Psych: Alert & Oriented X3 Result Diagram: 04/17/1745404/17/17454 Assessment and Plan Problems: (1) Bacterial pneumonia Assessment & Plan: His chest x-ray did show an infiltrate in the right lung. He was on empiric treatment with Zosyn and levofloxacin, but his sputum culture grew an Enterobacter Cloacae Complex and MSSA. We switched to Unasyn and continued Levofloxacin based on sensitivities. He has completed a full course of the levofloxacin and Unasyn. He developed increased respiratory difficulties on 04/11, but this was most likely related to the a-fib. A second sputum culture showed 4+ yeast. He remains on fluconazole. (2) Hypoxia Assessment & Plan: He has required very high flow and even Vapotherm with oxygen saturations remaining in 84-87% range. We have been able to wean him down to 6 liters without a significant change in his pulse oximetry. He reports that this has been the case with him in the past. He reports feeling fairly comfortable with this and tolerates the oxygen delivery much better. At this point, we will plan on keeping him on 6L oxygen at rest and increasing to 8L with activity. He will follow up with his Correctional Case Manager to discuss this further. (3) Atrial fibrillation with RVR Status: Acute Assessment & Plan: He developed atrial fibrillation with rapid ventricular rate. He was loaded with digoxin and placed on a diltiazem infusion. He was converted to oral diltiazem and he has tolerated this well. His echocardiogram showed a preserved ejection fraction (73%). We have not started anticoagulation secondary to his low platelet count and moderate hepatic dysfunction. I discussed this with him and he seems to understand very well. He will follow up with his PCP and possibly cardiology as an outpatient to discuss further. (4) COPD exacerbation Assessment & Plan: His COPD is most likely due to sbpoy-6-mipeefjonop deficiency. He is on replacement therapy. He has been receiving nebulizers and IV steroids. We have converted him to oral prednisone. (5) Hypotension Status: Resolved Assessment & Plan: Resolved. (6) Awrxq-5-stzakvhprltzntog deficiency Assessment & Plan: [facility]. He does have COPD, but it appears he also has some hepatic dysfunction secondary to this as well. A liver ultrasound was consistent with cirrhosis. His INR is modestly elevated and his serum proteins are slightly low. He will follow up with his Correctional Case Manager who has been managing his case to discuss further. (7) Diarrhea Status: Acute Assessment & Plan: Resolved. Probably due to antibiotics (Augmentin). C. difficile negative. (8) Hypokalemia Status: Acute Assessment & Plan: Due to diuretics/diarrhea. Continue with supplementation. Exam Sepsis Risk: No Definite Risk CJ ALDRIDGE MD Apr 17, 2017 10:34
[2017-04-17] MEDS: FLUCONAZOLE 100 MG TAB PO SCH (13:30)
[2017-04-18] VITALS: BP 99/72
[2017-04-18 02:00] VITALS: BP 104/75
[2017-04-18 04:00] VITALS: BP 107/87
[2017-04-18 05:44] LABS: PLATELET COUNT, AUTOMATED 32 K/uL (150-450)
[2017-04-18] MEDS ORDERED: DILT120C18 PO (07:53)
[2017-04-18] MEDS ORDERED: PRED20TA6 PO (07:53)
[2017-04-18] MEDS ORDERED: GUAI600T57 PO (07:53)
[2017-04-18] MEDS ORDERED: SPIR25TA78 PO (07:53)
[2017-04-18] MEDS ORDERED: DIGO125T90 PO (07:53)
[2017-04-18] MEDS ORDERED: FURO-45 PO (07:53)
[2017-04-18] MEDS ORDERED: POTA10CA40 PO (07:53)
[2017-04-18 08:00] VITALS: BP 101/81
--- NOTE | 2017-04-18 08:12 | Hospitalist Depart ---
Discharge Summary Reason for Hosp/Final Diag: (1) Bacterial pneumonia Hospital Course & Plan: His chest x-ray did show an infiltrate in the right lung. He was on empiric treatment with Zosyn and levofloxacin, but his sputum culture grew an Enterobacter Cloacae Complex and MSSA. We switched to Unasyn and continued Levofloxacin based on sensitivities. He has completed a full course of the levofloxacin and Unasyn. He developed increased respiratory difficulties on 04/11, but this was most likely related to the a-fib. A second sputum culture showed 4+ yeast. He was placed on fluconazole for a 14 day course. He will follow up with his plumber helper closely as an outpatient. (2) Hypoxia Hospital Course & Plan: He has required very high flow oxygen with saturations remaining in 84-87% range. We have been able to wean him down to 6 liters without a significant change in his pulse oximetry readings. He reports that this has been the case with him in the past. He reports feeling fairly comfortable with this and tolerates this form of oxygen delivery much better. At this point, we will plan on keeping him on 6L oxygen at rest and increasing to 8L with activity. He will follow up with his Maritime Pilot to discuss this further. (3) COPD exacerbation Hospital Course & Plan: His COPD is most likely due to sluqx-9-mpkwgemxjnw deficiency. He is on replacement therapy. He has been receiving nebulizers and IV steroids during his stay. We have converted him to oral prednisone and he will finish a short weaning course. (4) Vxcap-0-ypeekggehilvkrvw deficiency Hospital Course & Plan: [facility]. He does have COPD, but it appears he also has some fairly significant hepatic dysfunction secondary to this as well. A liver ultrasound was consistent with cirrhosis. His INR is modestly elevated and his serum proteins are slightly low. He will follow up with his Maritime Pilot who has been managing his case to discuss further. (5) Atrial fibrillation with RVR Status: Acute Hospital Course & Plan: He developed atrial fibrillation with rapid ventricular rate. He was loaded with digoxin and placed on a diltiazem infusion. He was converted to oral diltiazem and he has tolerated this well. His echocardiogram showed a preserved ejection fraction (73%). We have not started anticoagulation secondary to his low platelet count and moderate hepatic dysfunction. I discussed this with him and he seems to understand very well. He will follow up with his PCP and possibly cardiology as an outpatient to discuss further. (6) Diarrhea Status: Acute Hospital Course & Plan: Resolved. Probably due to antibiotics (Augmentin). C. difficile negative. (7) Hypokalemia Status: Acute Hospital Course & Plan: Due to diuretics/diarrhea. Continue with supplementation. Departure Weight (Pounds): 213 Weight (Ounces): 8.0 Result Diagram: 04/18/1751204/18/17 05 Item Value Date Time White Blood Count 7.3 k/uL 04/04/17 0908 Hemoglobin 22.2 g/dL H 04/04/17 0908 Hematocrit 65.5 % H 04/04/17 0908 Platelet Count 86 K/uL L 04/04/17 0908 Blood Gas Puncture Site Right radial 04/04/17 1005 Blood Gas Patient Temperature 97.8 DEGREES 04/04/17 1005 Arterial Blood pH 7.57 H 04/04/17 1005 Arterial Blood Partial Pressure CO2 26 mmHg L 04/04/17 1005 Arterial Blood Partial Pressure O2 59 mmHg L 04/04/17 1005 Arterial Blood HCO3 24 mmol/L 04/04/17 1005 Arterial Blood Oxygen Saturation 94 % 04/04/17 1005 Arterial Blood Base Excess 2.0 mmol/L 04/04/17 1005 Benja Test Acceptable 04/04/17 1005 Oxygen Liters/Minute 15l nrb 04/04/17 1005 Prothrombin Time 17.8 seconds H 04/15/17 0804 Prothromb Time International Ratio 1.44 04/15/17 0804 Sodium Level 136 mmol/L L 04/04/17 0908 Potassium Level 3.3 mmol/L L 04/04/17 0908 Chloride Level 98 mmol/L 04/04/17 0908 Carbon Dioxide Level 27 mmol/L 04/04/17 0908 Blood Urea Nitrogen 12 mg/dl 04/04/17 0908 Creatinine 0.80 mg/dl 04/04/17 0908 Glomerular Filtration Rate Calc > 60.0 04/04/17 0908 Random Glucose 88 mg/dl 04/04/17 0908 Calcium Level 9.2 mg/dl 04/04/17 0908 Total Bilirubin 4.6 mg/dl H 04/04/17 0908 Aspartate Amino Transf (AST/SGOT) 44 U/L H 04/04/17 0908 Alanine Aminotransferase (ALT/SGPT) 34 U/L 04/04/17 0908 Alkaline Phosphatase 101 U/L 04/04/17 0908 Troponin I < 0.012 ng/ml 04/04/17 0908 Total Protein 8.1 gm/dl 04/04/17 0908 Albumin 4.1 g/dl 04/04/17 0908 Thyroid Stimulating Hormone (TSH) 0.92 uIU/ml 04/12/17 0526 Troponin I 0.028 ng/ml 04/12/17 0526 Lactate 1.8 mmol/L 04/12/17 0526 Troponin I 0.051 ng/ml 04/11/17 1820 Albumin 2.3 g/dl L 04/13/17 0514 Total Protein 4.6 gm/dl L 04/13/17 0514 Alkaline Phosphatase 82 U/L 04/13/17 0514 Alanine Aminotransferase (ALT/SGPT) 28 U/L 04/13/17 0514 Aspartate Amino Transf (AST/SGOT) 42 U/L H 04/13/17 0514 Total Bilirubin 1.6 mg/dl H 04/13/17 0514 Calcium Level 7.8 mg/dl L 04/13/17 0514 Random Glucose 140 mg/dl H 04/13/17 0514 Glomerular Filtration Rate Calc > 60.0 04/13/17 0514 Creatinine 0.80 mg/dl 04/13/17 0514 Blood Urea Nitrogen 31 mg/dl H 04/13/17 0514 Carbon Dioxide Level 22 mmol/L 04/13/17 0514 Chloride Level 108 mmol/L H 04/13/17 0514 Potassium Level 3.4 mmol/L L 04/13/17 0514 Sodium Level 136 mmol/L L 04/13/17 0514 Sodium Level 140 mmol/L 04/15/17 0557 Potassium Level 3.1 mmol/L L 04/15/17 0557 Chloride Level 110 mmol/L H 04/15/17 0557 Carbon Dioxide Level 22 mmol/L 04/15/17 0557 Blood Urea Nitrogen 26 mg/dl H 04/15/17 0557 Creatinine 0.80 mg/dl 04/15/17 0557 Glomerular Filtration Rate Calc > 60.0 04/15/17 0557 Random Glucose 128 mg/dl H 04/15/17 0557 Calcium Level 8.2 mg/dl L 04/15/17 0557 Total Bilirubin 1.7 mg/dl H 04/15/17 0557 Aspartate Amino Transf (AST/SGOT) 24 U/L 04/15/17 0557 Alanine Aminotransferase (ALT/SGPT) 52 U/L 04/15/17 0557 Alkaline Phosphatase 57 U/L 04/15/17 0557 Total Protein 4.5 gm/dl L 04/15/17 0557 Albumin 2.2 g/dl L 04/15/17 0557 Urine Color Sada 04/11/17 1430 Urine Clarity Slightly-cloudy 04/11/17 1430 Urine pH 5.0 pH 04/11/17 1430 Urine Specific [place] 1.030 04/11/17 1430 Urine Protein Negative mg/dL 04/11/17 1430 Urine Glucose (UA) Negative mg/dL 04/11/17 1430 Urine Ketones Negative mg/dL 04/11/17 1430 Urine Blood Negative 04/11/17 1430 Urine Nitrite Negative 04/11/17 1430 Urine Bilirubin Negative 04/11/17 1430 Urine Urobilinogen Negative mg/dL 04/11/17 1430 Urine Leukocyte Esterase Negative 04/11/17 1430 Urine RBC 4 /HPF 04/11/17 1430 Urine WBC None /HPF 04/11/17 1430 Urine Squamous Epithelial Cells None /LPF 04/11/17 1430 Urine Amorphous Crystals Few /HPF 04/11/17 1430 Urine Bacteria Negative /HPF 04/11/17 1430 Urine Hyaline Casts Many /LPF H 04/11/17 1430 Urine Mucus Few /HPF 04/11/17 1430 Digoxin Level 1.4 ng/ml 04/12/17 0526 Digoxin Level 0.8 ng/ml 04/16/17 0530 Clostridium Difficile Toxin A & B Negative 04/15/17 1255 Clostridium difficile Antigen Negative 04/15/17 1255 Clostridium Difficile Toxin A & B Negative 04/11/17 0640 Clostridium difficile Antigen Negative 04/11/17 0640 Influenza Type A Antigen Negative 04/04/17 1102 Influenza Type B Antigen Negative 04/04/17 1102 [facility] LAB *LIVE* [address] [place] [address] MULU HARRIS M.D., DIRECTOR OF LABORATORY SERVICES JONATHON YDE M.D., PATHOLOGIST RUN DATE: 04/09/17 Specimen Inquiry Report PAGE 1 RUN TIME: 1152 PATIENT: MARINO SUÁREZ ACCT: [id number] LOC: [facility] U : [id number] AGE/SX: 66/M ROOM: [facility] REG : 04/04/[address]: MACIEJ ALDRIDGE MD : 1950 BED: 274 DIS : STATUS: ADM IN TLOC: SPEC #: [id number] DOLLY: 04/04/17 STATUS: COMP REQ #: [id number] RECD: 04/04/[address] [facility] [address]: MARINO BURRIS MD SOURCE: BLOOD ENTR: 04/04/[address] [facility] [address]: SPDES: ORDERED: CULT BLOOD COMMENTS: Comments: SOB Procedure Result Verified BLOOD CULTURE Final 04/09/17-1152 NO GROWTH AFTER 5 DAYS IN BOTH THE AEROBIC AND ANAEROBIC BOTTLES. [facility] *LIVE* [address] [facility] [address] MULU HARRIS M.D., DIRECTOR OF LABORATORY SERVICES JONATHON DYE M.D., PATHOLOGIST RUN DATE: 04/09/17 Specimen Inquiry Report PAGE 1 RUN TIME: 1152 PATIENT: MARINO SUÁREZ ACCT: [id number] LOC: MED U : [id number] AGE/SX: 66/M ROOM: 2274 REG : 04/04/[address]: MACIEJ ALDRIDGE MD : 1950 BED: 274 DIS : STATUS: ADM IN TLOC: SPEC #: [id number] DOLLY: 04/04/17 STATUS: COMP REQ #: [id number] RECD: 04/04/[address] [facility] [address]: MARINO BURRIS MD SOURCE: BLOOD PER ENTR: 04/04/[address] [facility] [address]: SPDESC: ORDERED: CULT BLOOD Procedure Result Verified BLOOD CULTURE Final 04/09/17-1152 NO GROWTH AFTER 5 DAYS IN BOTH THE AEROBIC AND ANAEROBIC BOTTLES. [facility] *LIVE* [address] [facility] [place] [address] MULU HARRIS M.D., DIRECTOR OF LABORATORY SERVICES JONATHON DYE M.D., PATHOLOGIST RUN DATE: 04/07/17 Specimen Inquiry Report PAGE 1 RUN TIME: 0852 PATIENT: MARINO SUÁREZ ACCT: [id number] LOC: ICU U : [id number] AGE/SX: 66/M ROOM: [facility] REG : 04/04/[address]: MACIEJ ALDRIDGE MD : 1950 BED: 260 DIS : STATUS: ADM IN TLOC: SPEC #: [id number] DOLLY: 04/04/17 STATUS: COMP REQ #: [id number] RECD: 04/04/[address] [facility] [address]: MACIEJ ALDRIDGE MD SOURCE: SPUTUM EXP ENTR: 04/04/[address] [facility] [address]: MARINO VILLANUEVA MD SPDESC: ORDERED: CULT SPUTUM/GS COMMENTS: Has specimen been collected/obtained? Y Procedure Result Verified GRAM STAIN Final 04/04/17-1612 MANY WHITE BLOOD CELLS MANY MUCUS RARE EPITHELIAL CELLS 4+ GRAM POSITIVE COCCI 1+ GRAM POSITIVE RODS SPUTUM CULTURE Final 04/07/17-851 Organism 1 ENTEROBACTER CLOACAE COMPLEX 1+ GROWTH Organism 2 STAPHYLOCOCCUS AUREUS 4+ GROWTH BETA LACTAMASE: POSITIVE 1+ FUNGUS PRESENT UNABLE TO ISOLATE DUE TO MIXED BELLE IF IDENTIFICATION IS NEEDED SUBMIT A SPECIMEN FOR FUNGAL CULTURE CONTINUED ON NEXT PAGE [facility] *LIVE* [address] [place] [address] MULU HARRIS M.D., DIRECTOR OF LABORATORY SERVICES JONATHON DYE M.D., PATHOLOGIST RUN DATE: 04/07/17 Specimen Inquiry Report PAGE 2 RUN TIME: 851 SPEC: [id number] PATIENT: MARINO SUÁREZ Mary [id number] ( Continued) Procedure Result Verified SPUTUM CULTURE Final (continued) 04/07/17-851 E LANDON CMPX STA AUREUS M.I.C. RX M.I.C. RX --------- --- --------- --- AMPICILLIN/SULBACTAM S CEFAZOLIN >=64 R S CEFTAZIDIME <=1 S CEFTRIAXONE <=1 S CEFEPIME <=1 S CEFOXITIN >=64 R ERTAPENEM <=0.5 S CIPROFLOXACIN <=0.25 S >=8 R CLINDAMYCIN <=0.25 R ERYTHROMYCIN >=8 R GENTAMICIN <=1 S <=0.5 S IMIPENEM <=0.25 S LEVOFLOXACIN <=0.12 S 4 R LINEZOLID 2 S MOXIFLOXACIN 1 I NITROFURANTOIN <=16 S OXACILLIN 0.5 S BENZYLPENICILLIN >=0.5 R PIPERACILLIN/TAZOBACTAM <=4 S QUINUPRISTIN/DALFOPRISTIN <=0.25 S RIFAMPIN <=0.5 S TETRACYCLINE <=1 S TIGECYCLINE <=0.12 S TOBRAMYCIN <=1 S TRIMETHOPRIM/SULFAMETHOXAZOLE <=20 S >=320 R VANCOMYCIN 1 S END OF REPORT [facility] *LIVE* [address] [facility] [place] [address] MULU HARRIS M.D., DIRECTOR OF LABORATORY SERVICES JONATHON DYE M.D., PATHOLOGIST RUN DATE: 04/13/17 Specimen Inquiry Report PAGE 1 RUN TIME: 0746 PATIENT: MARINO SUÁREZ ACCT: [id number] LOC: ICU U : [id number] AGE/SX: 66/M ROOM: [facility] REG : 04/04/[address]: MACIEJ ALDRIDGE MD : 1950 BED: 260 DIS : STATUS: ADM IN TLOC: SPEC #: [id number] DOLLY: 04/11/17 STATUS: COMP REQ #: [id number] RECD: 04/11/17-[address] [facility] [address]: ANSELMO MENZEES MD SOURCE: SPUTUM ENTR: 04/11/17-[address]: MACIEJ ALDRIDGE MD SPDESC: MARINO VILLANUEVA MD ORDERED: CULT SPUTUM/GS COMMENTS: Has specimen been collected/obtained? Y Procedure Result Verified GRAM STAIN Final 04/11/17-1119 1+ WHITE BLOOD CELLS 4+ BUDDING YEAST FUNGAL ELEMENTS, HYPHAE PRESENT MUCUS PRESENT SPUTUM CULTURE Final 04/13/17-745 Organism 1 YEAST SPECIES 4+ GROWTH Organism 2 MOULD RARE GROWTH [facility] *LIVE* [address] [facility] [address] MULU HARRIS M.D., DIRECTOR OF LABORATORY SERVICES JONATHON DYE M.D., PATHOLOGIST RUN DATE: 04/16/17 Specimen Inquiry Report PAGE 1 RUN TIME: 1332 PATIENT: MARINO SUÁREZ ACCT: [id number] LOC: ICU U : [id number] AGE/SX: 66/M ROOM: [facility] REG : 04/04/[address]: MACIEJ ALDRIDGE MD : 1950 BED: 260 DIS : STATUS: ADM IN TLOC: SPEC #: [id number] DOLLY: 04/11/17-1012 STATUS: RES REQ #: [id number] RECD: 04/11/[address] [facility] [address]: ANSELMO MENEZES MD SOURCE: SPUTUM ENTR: 04/11/17-[address] [facility] [address]: MACIE[facility]IDGE [facility] MD ORDERED: FUNGAL CULTURE COMMENTS: Additional Information: please use sputum collected this am Procedure Result Verified FUNGAL CULTURE PRELIM Final 04/16/17 SEE NOTE Client: [facility] Laboratory I/F [address] [place] [address] Physician: MACIEJ ALDRIDGE Patient: MARINO SUÁREZ 1950 Gender: Male Patient Identifiers: [id number] Visit Number (FIN): [id number] Collection Date: 04/11/2017 10:12 Fungal Culture ARUP test code [id number] Collected: 04/11/2017 10:12 MT Started: 04/12/2017 23:36 MT Source: Resp Body Site: Sputum Free Text Sources: SPUTUM Preliminary Report Culture POSITIVE for Yeast not Cryptococcus species END OF CHART VERIFIED/REPORTED DATES Procedure Accession Collected Received Verified/Reported Fungal Culture [id number] 04/11/2017 10:12:00 AM 04/12/2017 10:51:32 PM * This is a updated result. * A prior result that was reported as final has been changed.@ Old result entered: by [email or web address] Old result verified: by [email or web address] New result added: by [email or web address] CONTINUED ON NEXT PAGE [facility] *LIVE* [address] [place] [address] MULU HARRIS M.D., DIRECTOR OF LABORATORY SERVICES JONATHON DYE M.D., PATHOLOGIST RUN DATE: 04/16/17 Specimen Inquiry Report PAGE 2 RUN TIME: 1332 SPEC: [id number] PATIENT: MARINO SUÁREZ [id number] ( Continued) Procedure Result Verified FUNGAL CULTURE PRELIM Final (continued) 04/16/17-1331 RESULTS CALLED TO AND READ BACK BY (FIRST & LAST NAME, CREDENTIALS) added additional results FUNGAL CULTURE FINAL PENDING END OF REPORT [facility]* [address] [facility] [place] [address] MULU HARRIS M.D., DIRECTOR OF LABORATORY SERVICES JONATHON DYE M.D., PATHOLOGIST RUN DATE: 04/16/17 Specimen Inquiry Report PAGE 1 RUN TIME: 1624 PATIENT: MARINO SUÁREZ ACCT: [id number] LOC: ICU U : [id number] AGE/SX: 66/M ROOM: 2260 REG : 04/04/[address]: MACIEJ ALDRIDGE MD : 1950 BED: 260 DIS : STATUS: ADM IN TLOC: SPEC #: [id number] DOLLY: 04/11/17 STATUS: COMP REQ #: [id number] RECD: 04/11/[address] [facility] [address]: ANSELMO MENEZES MD SOURCE: BLOOD ENTR: 04/11/17-[address]: MACIEJ ALDRIDGE MD SPDESC: MARINO VILLANUEVA MD ORDERED: CULT BLOOD Procedure Result Verified BLOOD CULTURE Final 04/16/17-1624 NO GROWTH AFTER 5 DAYS IN BOTH THE AEROBIC AND ANAEROBIC BOTTLES. [facility] LAB *LIVE* [address] [facility] [address] MULU HARRIS M.D., DIRECTOR OF LABORATORY SERVICES JONATHON DYE M.D., PATHOLOGIST RUN DATE: 04/16/17 Specimen Inquiry Report PAGE 1 RUN TIME: 1624 PATIENT: MARINO SUÁREZ ACCT: [id number] LOC: ICU U : [id number] AGE/SX: 66/M ROOM: [facility] REG : 04/04/[address]: MACIEJ ALDRIDGE MD : 1950 BED: 260 DIS : STATUS: ADM IN TLOC: SPEC #: [id number] DOLLY: 04/11/17 STATUS: COMP REQ #: [id number] RECD: 04/11/[address]: ANSELMO MENEZES MD SOURCE: BLOOD ENTR: 04/11/17-[address]: MACIEJ ALDRIDGE MD SPDESC: MARINO VILLANUEVA MD ORDERED: CULT BLOOD Procedure Result Verified BLOOD CULTURE Final 04/16/17162 NO GROWTH AFTER 5 DAYS IN BOTH THE AEROBIC AND ANAEROBIC BOTTLES. [facility] *LIVE* [address] [place] [address] MULU HARRIS M.D., DIRECTOR OF LABORATORY SERVICES JONATHON DYE M.D., PATHOLOGIST RUN DATE: 04/13/17 Specimen Inquiry Report PAGE 1 RUN TIME: 741 PATIENT: MARINO SUÁREZ ACCT: [id number] LOC: ICU U : [id number] AGE/SX: 66/M ROOM: 2260 REG : 04/04/[address]: MACIEJ ALDRIDGE MD : 1950 BED: 260 DIS : STATUS: ADM IN TLOC: SPEC #: [id number] DOLLY: 04/11/17 STATUS: COMP REQ #: [id number] RECD: 04/11/[address]: ANSELMO MENEZES MD SOURCE: CCMS ENTR: 04/11/[address]: MACIEJ ALDRIDGE MD SPDESC: MARINO VILLANUEVA MD ORDERED: CULT URINE COMMENTS: Has specimen been collected/obtained? Y Procedure Result Verified URINE CULTURE Final 04/13/17-741 NO GROWTH AFTER 2 DAYS Imaging PATIENT NAME: Marino Suárez : 1950 MR: [id number] V: [id number] EXAM DATE: ORDERING PHYSICIAN: MARINO BURRIS TECHNOLOGIST: Location: [facility] Patient: Marino Suárez : 1950 Visit/Account:[id number] Date of Sevice: 04/04/2017 CHEST SINGLE AP portable AP at 0947 hours COMPARISON: No available comparisons at the time of this report. The patient has a previous PA lateral chest from 09/17/1715 which cannot be retrieved/ reviewed at the time of this report.. HISTORY: RESP DISTRESS FINDINGS: CARDIAC/VASC: No cardiac silhouette abnormality or cardiomegaly. Unremarkable pulmonary vasculature. MEDIASTINUM: No visible mass or adenopathy. LUNGS/PLEURA: Patchy interstitial opacities in the right lower lobe consistent with right lower lobe pneumonia. There is an interstitial abnormality in the retrocardiac left lower lobe present to a lesser degree. Unclear if this is acute or chronic. Left lower lobe pneumonia is not excluded.. There is no costophrenic angle blunting and there is no pneumothorax. BONES: No fracture or visible bony lesion. OTHER:Negative. IMPRESSION: Patchy right lower lobe consolidation is consistent with pneumonia. Probable additional left lower lobe pneumonia. If the findings are clinically consistent with pneumonia, six-week follow-up after antibiotic treatment is recommended. Report Dictated By: Miguel Morgan at 04/04/2017 10:24 AM Report E-Signed By: Miguel Morgan at 04/04/2017 10:26 AM WSN:[id number] PATIENT NAME: MARINO SUÁREZ : [id number] MR: [id number] V: [id number] EXAM DATE: [id number] ORDERING PHYSICIAN: ANSELMO MENEZES TECHNOLOGIST: Madeline Lopez EXAMINATION: T WO-DIMENSIONAL ECHOCARDIOGRAPH REASON: ATRIAL FIBRILLATION 2D Measurements (normal values in centimeters) LV end LV end RV end Vent. LV Post Aortic Left Percent Diastolic Systolic Diastolic Septum Wall Root Atrium Shortening (3.5-5.7) (0.9-2.6) (0.6-1.1) (0.6-1.1) (2.0-3.7) (1.9-4.0) (25-35%) 3.9 2.2 3.8 1.2 1.2 3.5 3.8 44% STROKE VOLUME: 51 mL. ESTIMATED EJECTION FRACTION: 73% PARASTERNAL LONG AXIS: The right ventricle appears to be enlarged. Other chamber sizes are normal. There is mild concentric left ventricular thickening but no evidence for any outflow tract obstruction. The patient appears to be in atrial fibrillation with a rapid ventricular response. No thrombi were noted and the left atrial appendage is not seen. Color examination of the aortic valve was unremarkable. Color examination of the mitral valve reveals a trace of mitral insufficiency present. No wall motion abnormalities were noted. PARASTERNAL SHORT AXIS: Overall left ventricular function appears to be normal. No wall motion abnormalities are noted. The right ventricle appears to be enlarged. Aortic valve was trileaflet in configuration and appears to open normally with minimal aortic sclerosis. Color examination of the pulmonic valve reveals a trace of pulmonic insufficiency. There is a trace to mild amount of tricuspid insufficiency noted. APICAL FOUR AND TWO CHAMBER: Left ventricular function appears to be normal. Right sided heart chambers appear to be enlarged. Left sided heart chambers are normal in size. The mitral valve and tricuspid valve both appear to open normally. Color examination of the mitral valve reveals a trace to mild amount of mitral insufficiency. Color examination of the tricuspid valve reveals a mild amount of tricuspid insufficiency. Tricuspid regurgitation V-max is measured at 2.78 m/sec. Aortic valve area was measured within normal range at 2.8 cm2. SUBCOSTAL VIEW: Technically difficult but no pericardial effusion was noted. The ascending aorta is slightly enlarged at 3.9 cm. OVERALL IMPRESSION: 1. Normal left ventricular ejection fraction of 73%. We were unable to accurately characterize the diastolic function as the patient is in atrial fibrillation. No thrombi were noted but the left atrial appendage was not seen. 2. Right sided heart chamber enlargement with the left sided chambers being normal. 3. Mild concentric left ventricular thickening, no evidence for any outflow tract obstruction. 4. A trileaflet aortic valve with mild aortic sclerosis . 5. A trace of pulmonic insufficiency. 6. Trace to mild amount of both mitral and tricuspid insufficiency. Estimated right ventricular systolic pressure within normal range at 34 mmHg. 7. A trace of aortic insufficiency present. Dictated by: Baljeet Lamb M.D. on 04/13/2017 at 18:30 Transcribed by: MADINA on 04/14/2017 at 11:27 Approved by: Baljeet Lamb M.D. on 04/14/2017 at 17:12 [facility] PATIENT NAME: Marino Suárez : 1950 MR: [id number] V: [id number] EXAM DATE: [id number] ORDERING PHYSICIAN: CJ ALDRIDGE TECHNOLOGIST: Location: [facility] Patient: Marino Suárez : 1950 Visit/Account:[id number] Date of Sevice: 04/15/2017 Abdominal ultrasound Indication: Alpha I antitrypsin deficiency. Possible cirrhosis. Comparison: None Findings: The liver is dense, heterogeneous with microlobulations consistent with underlying hepatocellular disease and cirrhosis. Liver measures 16 cm. No focal mass or intrahepatic ductal dilatation. Portal vein is patent with normal directional flow. Moderate amount of ascites. Gallbladder wall is thickened measuring approximately 5 mm. This is nonspecific in the setting of cirrhosis but can be an indicator of portal hypertension. Negative sonographic Quick's sign. Common bile duct measures 4.1 mm. Due to bowel gas, the pancreas is obscured. Abdominal aorta and IVC are patent and unremarkable. Right kidney measures 10.5 x 5.2 x 4.5 cm. IMPRESSION: 1. The liver is coarse, heterogeneous and microlobulated, consistent with underlying hepatocellular disease and cirrhosis. 2. Mild gallbladder wall thickening which is nonspecific in setting of cirrhosis but can be an indication of portal hypertension. 3. Moderate amount of intra-abdominal ascites. Report Dictated By: Jorge Calix MD at 04/15/2017 7:36 PM Report E-Signed By: Jorge Calix MD at 04/15/2017 7:41 PM WSN:[id number] EKG PATIENT NAME: MARINO SUÁREZ : [id number] MR: [id number] V: [id number] EXAM DATE: ORDERING PHYSICIAN: ANSELMO MENEZES TECHNOLOGIST: Tera Test Reason : Blood Pressure : / mmHG Vent. Rate : 115 BPM Atrial Rate : 115 BPM P-R Int : 128 ms QRS Dur : 068 ms QT Int : 308 ms P-R-T Axes : 060 056 074 degrees QTc Int : 426 ms Sinus tachycardia Low voltage QRS Nonspecific T wave abnormality Abnormal ECG No previous ECGs available Confirmed by ANSELMO MENEZES ([id number]) on 04/11/2017 6:35:13 PM Referred By: Confirmed By:ANSELMO MENEZES PATIENT NAME: MARINO SUÁREZ : [id number] MR: [id number] V: [id number] EXAM DATE: ORDERING PHYSICIAN: ANSELMO MENEZES TECHNOLOGIST: Tera Test Reason : Blood Pressure : / mmHG Vent. Rate : 143 BPM Atrial Rate : 040 BPM P-R Int : 000 ms QRS Dur : 068 ms QT Int : 294 ms P-R-T Axes : 000 056 044 degrees QTc Int : 453 ms Atrial fibrillation Low voltage QRS Nonspecific T wave abnormality Compared to previous, now in atrial fibrillation Confirmed by ANSELMO MENEZES ([id number]) on 04/11/2017 6:38:21 PM Referred By: Confirmed By:ANSELMO MENEZES Condition: Improved Discharge: Home, Home Health PT/OT Follow Up For: PT For Strengthening, OT For ADL's Home Health RN Follow Up For: Nursing Assessment Home Health [employer] Follow Up For: ADL Assistance Follow-Up Labs: Other (CBC, CMP in approximately one week with Dr. James) Time Spent: > 30 min Discharge Instructions Home Meds Active Scripts Fluconazole (FLUCONAZOLE) 200 Mg Tablet, 200 MG PO QDAY for 6 Days, #6 TAB 0 Refills Prov:CJ ALDRIDGE MD 04/18/17 Potassium Chloride (POTASSIUM CHLORIDE) 10 Meq Capsule.er, 10 MEQ PO BID, #30 CAP 0 Refills Prov:CJ ALDRIDGE MD 04/18/17 Prednisone (PREDNISONE) 20 Mg Tablet, 20 MG PO QDAY, #3 TAB One tab a day for 2 days then one-half tab a day for two days then off Prov:CJ ALDRIDGE MD 04/18/17 Spironolactone (SPIRONOLACTONE) 25 Mg Tablet, 25 MG PO DAILY for 15 Days, #15 TAB 0 Refills Prov:CJ ALDRIDGE MD 04/18/17 Guaifenesin (MUCINEX) 600 Mg Tablet.er, 1200 MG PO BID, #20 TAB 0 Refills Prov:CJ ALDRIDGE MD 04/18/17 Furosemide (FUROSEMIDE) 20 Mg Tablet, 20 MG PO QDAY, #15 TAB 0 Refills Prov:CJ ALDRIDGE MD 04/18/17 Diltiazem Hcl (DILTIAZEM 24HR CD) 120 Mg Cap.er.24h, 240 MG PO QDAY, #30 CAP 1 Refill Prov:CJ ALDRIDGE MD 04/18/17 Digoxin (Digox) 125 Mcg Tablet, 0.125 MG PO QDAY, #30 TAB 1 Refill Prov:CJ ALDRIDGE MD 04/18/17 Reported Medications Fluticasone Prop 44 Mcg (FLOVENT HFA 44 MCG) 44 Mcg Inha, 44 MCG INH BID, INH 04/04/17 Albuterol Sulfate (VENTOLIN HFA) 18 Gm Inh, 2 PUFF INH Q4-6H, INH 04/04/17 Diet: Regular, No Added Salt (YUE) Special Instructions: Patient has a doctor's appointment with on April 29 at 2:00pm,please arrive at 1:30pm to fill out paper work. Follow up with Pulmonolgy as planned in one week. Copies to: ERIN JAMES MD; MARINO VILLANUEVA MD Venous Thromboembolism Antithrombotics Is Pt On Any Antithrombotics?: Yes [id number] Certification Face to Face Home Health Certification Institutional Provider conducted the [id number] encounter. Electronic Undersigning Physician Certifies Home Health. I certify that the patient has been under my care and that I had a [id number] encounter that meets the physician [id number] encounter requirements with this patient. This patient is home-bound due to safety issues and continues to require assistance with ADL's. I certify that based on my findings, that Nursing, Aides and the following Home Health services are medically necessary: physical therapy Medical Necessity: Nursing, Rehab Date Face to Face Conducted: Apr 18, 2017 CJ ALDRIDGE MD Apr 18, 2017 08:12
[2017-04-18] MEDS ORDERED: FLUC200T56 PO (08:16)
[2017-04-18] MEDS: POTASSIUM CHL PWDR 20 MEQ PKT PO SCH (08:29)
[2017-04-18] MEDS: DILTIAZEM CD 120 MG CAPCR PO SCH (08:33)
[2017-04-18] MEDS: LACTOBACILLUS ACIDOPHILUS TAB PO SCH ×2 (08:33→12:46)
[2017-04-18] MEDS: DIGOXIN 0.125 MG TAB PO SCH (08:35)
[2017-04-18] MEDS: guaiFENesin 600 MG TABCR PO SCH (08:35)
[2017-04-18] MEDS: FUROSEMIDE 20 MG TAB PO SCH (08:37)
[2017-04-18] MEDS: predniSONE 20 MG TAB PO SCH (08:38)
[2017-04-18] MEDS ORDERED: SPIRONOLACTONE 25 MG TAB PO SCH (09:00)
[2017-04-18 10:00] VITALS: BP 101/73
[2017-04-18 12:00] VITALS: BP 96/75
[2017-04-18] MEDS: FLUCONAZOLE 100 MG TAB PO SCH (13:39)
== END 2017-04-18 13:45 | disposition home health service (06) | DRG 871 ==
LOC: ER 09:21 → ICU 12:17 → MED 04-07 14:30 → ICU 04-11 16:50
PROVIDERS: ADMIT Internal Medicine; ATTEND Internal Medicine
DX: A41.9 Sepsis, unspecified organism (principal); J15.211 Pneumonia due to Methicillin susceptible Staphylococcus aureus; B37.1 Pulmonary candidiasis; J96.01 Acute respiratory failure with hypoxia; J44.0 Chronic obstructive pulmonary disease with (acute) lower respiratory infection; J44.1 Chronic obstructive pulmonary disease with (acute) exacerbation; E87.3 Alkalosis; K52.1 Toxic gastroenteritis and colitis; B96.89 Other specified bacterial agents as the cause of diseases classified elsewhere; E88.01 Alpha-1-antitrypsin deficiency; I48.0 Paroxysmal atrial fibrillation; T50.2X5A Adverse effect of carbonic-anhydrase inhibitors, benzothiadiazides and other diuretics, initial encounter; K76.89 Other specified diseases of liver; T36.0X5A Adverse effect of penicillins, initial encounter; E87.6 Hypokalemia; K21.9 Gastro-esophageal reflux disease without esophagitis; I95.9 Hypotension, unspecified; Y92.230 Patient room in hospital as the place of occurrence of the external cause; Z99.81 Dependence on supplemental oxygen; Z91.013 Allergy to seafood; Z77.22 Contact with and (suspected) exposure to environmental tobacco smoke (acute) (chronic)
CPT/HCPCS: 36415; 36600; 71045; 71046; 76705; 80162; 80202; 81001; 82040; 82247; 82310; 82374; 82435; 82565; 82803; 82947; 83605; 83735; 84075; 84132; 84155; 84295; 84443; 84450; 84460; 84484; 84520; 85025; 85610; 87040; 87070; 87077; 87088; 87186; 87205; 87252; 87305; 87324; 87449; 87502; 93005; 93306; 94640; 94667; 94668; 96361; 96365; 96375; 97161; 99285; J0256; J0295; J1160; J1450; J1650; J1940; J1956; J2060; J2543; J2550; J2930; J3370; J3480; J3490; J7030; J7040; J7050; J7512; J7613; Q9967

== ENCOUNTER 2017-04-08 17:54 | Outpatient (RCR) | payer MEDICARE, BC ==
[2017-04-05 10:21] VITALS: BMI 25.1
[~2017-04-08 17:54] MED LIST changes: +ALB18R INH; -DEXTROSE 5%(*) 100 ML BAG 100 ML IVPB PRN; +FLU44R INH; -LIDOCAINE/SOD BICARB 8.4% SYR ID PRN; -[UNRECOGNIZED DRUG - MIXTURE] IVPB PRN
== END 2017-04-16 16:15 | disposition home or self-care (01) ==
LOC: TCM 17:54
PROVIDERS: ATTEND Nurse Practitioner
DX: Z02.9 Encounter for administrative examinations, unspecified (principal)

== ENCOUNTER → 2017-05-13 | Outpatient (CLI) | payer MEDICARE, BC ==
[2017-04-05 10:21] VITALS: BMI 25.1
[~2017-05-13] MED LIST changes: +AZIT-1 PO; +DIGO125T90 PO; +DILT120C18 PO; +FLUC200T56 PO; +FURO-45 PO; +GUAI600T57 PO; +OSE75 PO; +POTA10CA40 PO; +PRED20TA6 PO; +SPIR25TA78 PO
== END ==
LOC: LAB 10:40
PROVIDERS: ATTEND Emergency Medicine
DX: K74.60 Unspecified cirrhosis of liver (principal); E83.51 Hypocalcemia
CPT/HCPCS: 36415; 82306; 82310; 82374; 82435; 82565; 82947; 84132; 84295; 84520

== ENCOUNTER → 2017-06-11 | Outpatient (CLI) | payer MEDICARE, BC ==
[2017-04-05 10:21] VITALS: BMI 25.1
[~2017-06-11] MED LIST changes: +CHOL500045 PO; +FLUT1AER INH
== END ==
LOC: LAB 15:16
PROVIDERS: ATTEND Emergency Medicine
DX: K74.60 Unspecified cirrhosis of liver (principal)
CPT/HCPCS: 36415; 82105; 83516; 83540; 83550; 86038; 86706; 86707; 87340; 87350; G0472; 86803

== ENCOUNTER → 2017-06-24 | Outpatient (CLI) | payer MEDICARE, BC ==
[2017-04-05 10:21] VITALS: BMI 25.1
== END ==
LOC: LAB 12:12
PROVIDERS: ATTEND Emergency Medicine
DX: E83.19 Other disorders of iron metabolism (principal); R74.8 Abnormal levels of other serum enzymes
CPT/HCPCS: 36415; 81256; 83516

== ENCOUNTER → 2017-11-27 | Outpatient (CLI) | payer MEDICARE, BC ==
[2017-04-05 10:21] VITALS: BMI 25.1
[~2017-11-27] MED LIST changes: +AMOX-559 PO; +AMOX875T60 PO; +PNEI IJ; -SPIR25TA78 PO; +SPIR25TA80 PO; +SPIR50TA33 PO
== END ==
LOC: LAB 09:02
PROVIDERS: ATTEND Emergency Medicine
DX: K74.60 Unspecified cirrhosis of liver (principal)
CPT/HCPCS: 36415; 82310; 82374; 82435; 82565; 82947; 84132; 84295; 84520

== ENCOUNTER → 2017-12-22 | Outpatient (CLI) | payer MEDICARE, BC ==
[2017-04-05 10:21] VITALS: BMI 25.1
[~2017-12-22] MED LIST changes: +FLU180SY11 IM; +FLU220R INH; +TIO18R INH
[2017-12-22 14:34] LABS: PLATELET COUNT, AUTOMATED 108 K/uL (150-450)
== END ==
LOC: LAB 13:44
PROVIDERS: ATTEND Emergency Medicine
DX: E55.9 Vitamin D deficiency, unspecified (principal); K74.60 Unspecified cirrhosis of liver
CPT/HCPCS: 36415; 82040; 82247; 82306; 82310; 82374; 82435; 82565; 82947; 84075; 84132; 84155; 84295; 84450; 84460; 84520; 85025

== ENCOUNTER 2018-01-22 10:09 | Emergency (ER) | payer MEDICARE, BC ==
[2017-04-05 10:21] VITALS: Wt 78.5 kg
[~2018-01-22 10:09] MED LIST changes: +UMEC62.5 INH
--- NOTE | 2018-01-22 10:14 | ER Report ---
History and Physical Time Seen By MD: 10:14 HPI/ROS CHIEF COMPLAINT: Right-sided abdominal flank pain HISTORY OF PRESENT ILLNESS: Patient is a 67-year-old male here with complaints of right-sided abdominal flank pain which started approximately 2:00 today. Patient reports having history of nephrolithiasis in the past and is similar to this pain. Patient also has a history significant for alpha-1 antitrypsin deficiency affecting patient's lungs. Patient is afebrile on supplemental oxygen. Patient also has a known history of ascites on spironolactone. Patient denies hematuria, burning with urination, fevers or chills, blood in the stools. Pain is intermittent and associated with nausea when present. REVIEW OF SYSTEMS: Constitutional: No fever, no chills. Eyes: No discharge. ENT: No sore throat. Cardiovascular: No chest pain, no palpitations. Respiratory: No cough, no shortness of breath. Gastrointestinal: + right abdominal pain, NV Genitourinary: No hematuria. Musculoskeletal: + right flank pain Skin: No rashes. Neurological: No headache. Allergies: Coded Allergies: shellfish derived (Verified Allergy, Severe, 01/22/18) clavulanic acid (Verified Adverse Reaction, Mild, NAUSEA/VOMITING, ) Nausea and diarrhea with PO. Patient unable to vomit d/t surgery. Home Meds Active Scripts Umeclidinium [place] (Incruse Ellipta) 62.5 Mcg Blst.w.dev, 1 INH INH DAILY, #1 INH 11 Refills Prov:ERIN PAZ MD 01/01/18 Fluticasone Propionate (FLOVENT HFA) 220 Mcg Inha, 1-2 PUFF INH BID, #1 INHALER 11 Refills Prov:ERIN PAZ MD 12/24/17 Spironolactone (SPIRONOLACTONE) 50 Mg Tablet, 12.5 MG PO DAILY, #1 TAB Prov:ERIN PAZ MD 12/22/17 Guaifenesin (MUCINEX) 600 Mg Tablet.er, 1200 MG PO BID, #20 TAB 0 Refills Prov:CJ ALDRIDGE MD 04/18/17 Reported Medications Albuterol Sulfate (VENTOLIN HFA) 18 Gm Inh, 2 PUFF INH Q4-6H, INH 04/04/17 Hx Smoking: No Smoking Status: Never Smoker Exposure to Second Hand Smoke?: Yes (mother and father smoked growing up) Hx Alcohol Use: No Constitutional Vital Sign - Last 24 Hours 01/22/18 01/22/18 01/22/18 01/22/18 10:13 10:17 10:30 11:00 Temp 98.1 Pulse 79 Resp 16 B/P (MAP) 114/73 114/73 (87) 107/70 (82) 95/75 (82) Pulse Ox 86 O2 Delivery Nasal Cannula 01/22/18 01/22/18 01/22/18 01/22/18 11:24 11:29 11:30 11:34 Pulse 72 81 89 B/P (MAP) 94/65 (75) Pulse Ox 92 93 87 O2 Delivery Nasal Cannula O2 Flow Rate 6 01/22/18 01/22/18 01/22/18 01/22/18 11:39 11:54 11:59 12:00 Pulse 73 73 80 B/P (MAP) 106/71 (83) Pulse Ox 92 93 91 01/22/18 01/22/18 01/22/18 01/22/18 12:05 12:10 12:20 12:25 Pulse 80 77 70 75 Pulse Ox 91 90 89 88 01/22/18 01/22/18 01/22/18 01/22/18 12:30 12:35 12:45 12:50 Pulse 72 ??? 81 79 B/P (MAP) 98/65 (76) Pulse Ox 90 90 91 01/22/18 01/22/18 01/22/18 01/22/18 12:55 13:00 13:05 13:10 Pulse 82 75 70 B/P (MAP) 97/63 (74) Pulse Ox 90 90 93 92 01/22/18 01/22/18 01/22/18 01/22/18 13:15 13:20 13:25 13:30 Pulse 68 67 68 70 B/P (MAP) 98/64 (75) Pulse Ox 92 94 93 94 O2 Delivery Nasal Cannula O2 Flow Rate 6 01/22/18 01/22/18 01/22/18 01/22/18 13:35 13:40 13:45 13:55 Pulse 70 ??? 80 79 Pulse Ox 95 93 94 93 01/22/18 01/22/18 01/22/18 01/22/18 14:00 14:05 14:15 14:20 Pulse 80 80 82 B/P (MAP) 94/62 (73) Pulse Ox 92 91 91 90 O2 Delivery Nasal Cannula O2 Flow Rate 6 01/22/18 01/22/18 01/22/18 01/22/18 14:25 14:30 14:35 14:40 Pulse 81 78 ??? 87 B/P (MAP) 94/58 (70) Pulse Ox 90 89 91 83 01/22/18 01/22/18 01/22/18 01/22/18 14:45 14:50 15:00 15:05 Pulse 79 76 70 B/P (MAP) 101/66 (78) Pulse Ox 89 89 91 91 O2 Delivery Nasal Cannula O2 Flow Rate 6 01/22/18 15:15 Pulse 73 Pulse Ox 91 Physical Exam General Appearance: The patient is alert, has no immediate need for airway protection and no signs of toxicity. Eyes: Pupils equal and round no pallor or injection. ENT, Mouth: Mucous membranes are moist. Respiratory: There are no retractions, lungs are clear to auscultation. Cardiovascular: Regular rate and rhythm. Gastrointestinal: Abdomen is soft and + tender in right lower abdomen, no masses, bowel sounds normal. Neurological: No focal deficits Skin: Warm and dry, no rashes. Musculoskeletal: Neck is supple non tender. Extremities are nontender, nonswollen and have full range of motion. DIFFERENTIAL DIAGNOSIS: After history and physical exam differential diagnosis was considered for abdominal pain including but not limited to appendicitis, cholecystitis, gastritis and urinary tract infection, nephrolithiasis Medical Decision Making Data Points Result Diagram: 01/22/18 1021 01/22/18 1021 Laboratory Hematology Test 01/22/18 10:21 01/22/18 11:35 Red Blood Count 5.15 M/uL (4.00-5.60) Mean Corpuscular Volume 97.0 fL (80.0-96.0) Mean Corpuscular Hemoglobin 32.9 pg (26.0-33.0) Mean Corpuscular Hemoglobin Concent 33.9 g/dL (32.0-36.0) Red Cell Distribution Width 16.0 % (11.5-14.5) Mean Platelet Volume 9.0 fL (7.2-11.1) Neutrophils (%) (Auto) 82.4 % (39.4-72.5) Lymphocytes (%) (Auto) 11.2 % (17.6-49.6) Monocytes (%) (Auto) 5.6 % (4.1-12.4) Eosinophils (%) (Auto) 0.4 % (0.4-6.7) Basophils (%) (Auto) 0.4 % (0.3-1.4) Nucleated RBC Relative Count (auto) 0.0 /100WBC Neutrophils # (Auto) 5.3 K/uL (2.0-7.4) Lymphocytes # (Auto) 0.7 K/uL (1.3-3.6) Monocytes # (Auto) 0.4 K/uL (0.3-1.0) Eosinophils # (Auto) 0.0 K/uL (0.0-0.5) Basophils # (Auto) 0.0 K/uL (0.0-0.1) Nucleated RBC Absolute Count (auto) 0.00 K/uL Prothrombin Time 15.9 seconds (12.0-14.4) Prothromb Time International Ratio 1.26 Activated Partial Thromboplast Time 33 seconds (23-35) Sodium Level 140 mmol/L (137-145) Potassium Level 3.7 mmol/L (3.5-5.0) Chloride Level 106 mmol/L (98-107) Carbon Dioxide Level 25 mmol/L (22-30) Blood Urea Nitrogen 14 mg/dl (9-21) Creatinine 0.80 mg/dl (0.66-1.25) Glomerular Filtration Rate Calc > 60.0 Random Glucose 116 mg/dl (75-110) Calcium Level 9.0 mg/dl (8.4-10.2) Total Bilirubin 1.8 mg/dl (0.2-1.3) Aspartate Amino Transf (AST/SGOT) 44 U/L (0-35) Alanine Aminotransferase (ALT/SGPT) 39 U/L (0-56) Alkaline Phosphatase 141 U/L (0-126) Total Protein 7.0 g/dl (6.3-8.2) Albumin 3.6 g/dl (3.5-5.0) Lipase 61 U/L (23-300) Urine Color Sada Urine Clarity Slightly-cloudy Urine pH 5.0 pH (4.8-9.5) Urine Specific Otho 1.020 Urine Protein 30 mg/dL (NEGATIVE) Urine Glucose (UA) Negative mg/dL (NEGATIVE) Urine Ketones Trace mg/dL (NEGATIVE) Urine Blood Large (NEGATIVE) Urine Nitrite Negative (NEGATIVE) Urine Bilirubin Negative (NEGATIVE) Urine Urobilinogen Negative mg/dL (0.2-1.9) Urine Leukocyte Esterase Trace (NEGATIVE) Urine RBC 175 /HPF (0-2/HPF) Urine WBC 9 /HPF (0-5/HPF) Urine Squamous Epithelial Cells None /LPF (</=FEW) Urine Calcium Oxalate Crystals Few /HPF (NONE) Urine Bacteria Few /HPF (NONE-FEW) Urine Mucus Few /HPF (NONE-FEW) Chemistry Test 01/22/18 10:21 01/22/18 11:35 White Blood Count 6.4 k/uL (4.5-11.0) Red Blood Count 5.15 M/uL (4.00-5.60) Hemoglobin 16.9 g/dL (14.0-18.0) Hematocrit 49.9 % (42.0-52.0) Mean Corpuscular Volume 97.0 fL (80.0-96.0) Mean Corpuscular Hemoglobin 32.9 pg (26.0-33.0) Mean Corpuscular Hemoglobin Concent 33.9 g/dL (32.0-36.0) Red Cell Distribution Width 16.0 % (11.5-14.5) Platelet Count 114 K/uL (150-450) Mean Platelet Volume 9.0 fL (7.2-11.1) Neutrophils (%) (Auto) 82.4 % (39.4-72.5) Lymphocytes (%) (Auto) 11.2 % (17.6-49.6) Monocytes (%) (Auto) 5.6 % (4.1-12.4) Eosinophils (%) (Auto) 0.4 % (0.4-6.7) Basophils (%) (Auto) 0.4 % (0.3-1.4) Nucleated RBC Relative Count (auto) 0.0 /100WBC Neutrophils # (Auto) 5.3 K/uL (2.0-7.4) Lymphocytes # (Auto) 0.7 K/uL (1.3-3.6) Monocytes # (Auto) 0.4 K/uL (0.3-1.0) Eosinophils # (Auto) 0.0 K/uL (0.0-0.5) Basophils # (Auto) 0.0 K/uL (0.0-0.1) Nucleated RBC Absolute Count (auto) 0.00 K/uL Prothrombin Time 15.9 seconds (12.0-14.4) Prothromb Time International Ratio 1.26 Activated Partial Thromboplast Time 33 seconds (23-35) Glomerular Filtration Rate Calc > 60.0 Calcium Level 9.0 mg/dl (8.4-10.2) Total Bilirubin 1.8 mg/dl (0.2-1.3) Aspartate Amino Transf (AST/SGOT) 44 U/L (0-35) Alanine Aminotransferase (ALT/SGPT) 39 U/L (0-56) Alkaline Phosphatase 141 U/L (0-126) Total Protein 7.0 g/dl (6.3-8.2) Albumin 3.6 g/dl (3.5-5.0) Lipase 61 U/L (23-300) Urine Color Sada Urine Clarity Slightly-cloudy Urine pH 5.0 pH (4.8-9.5) Urine Specific Otho 1.020 Urine Protein 30 mg/dL (NEGATIVE) Urine Glucose (UA) Negative mg/dL (NEGATIVE) Urine Ketones Trace mg/dL (NEGATIVE) Urine Blood Large (NEGATIVE) Urine Nitrite Negative (NEGATIVE) Urine Bilirubin Negative (NEGATIVE) Urine Urobilinogen Negative mg/dL (0.2-1.9) Urine Leukocyte Esterase Trace (NEGATIVE) Urine RBC 175 /HPF (0-2/HPF) Urine WBC 9 /HPF (0-5/HPF) Urine Squamous Epithelial Cells None /LPF (</=FEW) Urine Calcium Oxalate Crystals Few /HPF (NONE) Urine Bacteria Few /HPF (NONE-FEW) Urine Mucus Few /HPF (NONE-FEW) Coagulation Test 01/22/18 10:21 Prothrombin Time 15.9 seconds Prothromb Time International Ratio 1.26 Activated Partial Thromboplast Time 33 seconds Urinalysis Test 01/22/18 11:35 Urine Color Sada Urine Clarity Slightly-cloudy Urine pH 5.0 pH (4.8-9.5) Urine Specific Otho 1.020 Urine Protein 30 mg/dL (NEGATIVE) Urine Glucose (UA) Negative mg/dL (NEGATIVE) Urine Ketones Trace mg/dL (NEGATIVE) Urine Blood Large (NEGATIVE) Urine Nitrite Negative (NEGATIVE) Urine Bilirubin Negative (NEGATIVE) Urine Urobilinogen Negative mg/dL (0.2-1.9) Urine Leukocyte Esterase Trace (NEGATIVE) Urine RBC 175 /HPF (0-2/HPF) Urine WBC 9 /HPF (0-5/HPF) Urine Squamous Epithelial Cells None /LPF (</=FEW) Urine Calcium Oxalate Crystals Few /HPF (NONE) Urine Bacteria Few /HPF (NONE-FEW) Urine Mucus Few /HPF (NONE-FEW) EKG/Imaging Monitor Interpretation: Normal Sinus Rhythm Imaging ABDOMEN/PELVIS W/O CONTRAST HISTORY: Right-sided abdomen pain, history of kidney stones TECHNIQUE: Axial images acquired through the abdomen/pelvis. Coronal and sagittal reformatting also performed. No IV contrast administered.Dose Lowering Technique One of the following dose optimization techniques was utilized in the performance of this exam: Automated exposure control; adjustment of the mA and/or kV according to the patient's size; or use of an iterative reconstruction technique. Specific details can be referenced in the facility's radiology CT exam operational policy. COMPARISON: Abdomen ultrasound February 12, 2016 FINDINGS: Visualized lung bases: Emphysematous changes are seen throughout the lungs. There is coarse linear stranding seen in the lung bases which may represent sca rring or atelectasis. Incompletely imaged is a more confluent area of consolidation in the anteromedial right middle lobe measuring 2.1 x 1.8 cm. This could represent an area of atelectasis or scarring however a mass lesion should be excluded Hepatobiliary: The liver appears small with a lobular contour and a heterogeneous density although not ideally evaluated due to lack of contrast. The appearance is suggestive of cirrhosis. Spleen: Spleen is enlarged measuring 14.7 cm in AP dimension Adrenals: Negative. Pancreas: Fatty replacement of the pancreas Kidneys ureters and bladder: There is a moderate right hydronephrosis secondary to a 8 mm calculus in the proximal right ureter just beyond the right UPJ. There is an additional 3 mm calculus in the mid right ureter. There is a 2 mm nonobstructing calcification in the mid pole calyx of the left kidney. There are hyperdensities seen in the renal pyramids bilaterally suggesting possible medullary sponge kidney disease Genitalia: Prostate gland is heterogeneous mildly enlarged impinging upon the floor the bladder GI: Negative. Vessels/spaces/nodes: There is recanalization of the umbilical vein. Extensive venous collaterals are identified along the left anterior abdominal and pelvic wall. Extensive varices are seen in the left upper quadrant of abdomen. Serpiginous vessels are identified in the scrotal sac bilaterally which may represent varicoceles Bones/soft tissues: There is a right inguinal hernia containing fat. There are sclerotic densities in both hip joints, a small sclerotic focus left- sided T11 There are sclerotic changes seen along the inferior pubic rami bilaterally . Metastatic disease should be excluded Additional findings: None pertinent. IMPRESSION: There is moderate right hydronephrosis secondary to an 8 mm calculus in the proximal right ureter just beyond the right UPJ and an additional 3 mm calculus in the mid right ureter There is a 2 mm nonobstructing calcification in the midpole of the left kidney There are hyperdensities in the renal pyramids bilaterally suggesting possible medullary sponge kidney disease There are severe emphysematous changes throughout the lungs. Coarse linear stranding in the lung bases may represent scarring versus atelectasis. Incompletely imaged is a confluent area of consolidation in the anteromedial right middle lobe measuring 2.1 x 1.8 cm. This could represent an additional area of atelectasis or scarring however a mass lesion should be excluded. Cirrhotic appearance to the liver with recanalization of the umbilical vein and extensive collateral vessels in the left upper abdomen and also extensive s ubcutaneous venous collaterals along the anterior left side of the abdominal pelvic wall. Mild splenomegaly Right inguinal hernia containing fat, probable bilateral varicoceles Sclerotic changes at both hip joints, and T11 and along the inferior pubic rami bilaterally. Metastatic disease should be excluded ED Course/Re-evaluation Clinical Indication for ER IV: Hydration, IV Access ED Course Patient is a 67-year-old male here with complaints of right sided abdominal pain in the setting of alpha 1 antitrypsin deficiency in the setting of COPD, cirrhosis. Patient was found to have an 8 mm proximal ureteral stone with moderate hydronephrosis. Urinalysis showed no signs of infection. Patient was afebrile, mildly hypotensive throughout course. Patient was given Toradol for analgesia and a bolus of IV fluids for hydration. I discussed the patient with urology and internal medicine and the decision was made to transfer the patient due to patient's significant comorbidities. I discussed the patient with [facility] is on-call hospitalist provider who accepted the patient for medical optimization and care. I discussed the findings with the patient and the patient decided that he would decline ambulance transport and go via personal vehicle to [facility]. Patient was stable at time of discharge. Decision to Disposition Date: Jan 22, 2018 Decision to Disposition Time: 16:58 Depart Departure Latest Vital Signs Vital Signs Date Time Temp Pulse Resp B/P (MAP) Pulse Ox O2 Delivery O2 Flow Rate FiO2 01/22/18 15:15 73 91 01/22/18 15:00 101/66 (78) Nasal Cannula 6 01/22/18 10:13 98.1 16 Impression: Primary Impression: Cirrhosis of liver with ascites Additional Impressions: Nephrolithiasis Vnzzm-[id number]-[id number] deficiency Condition: Improved Disposition: XFER TO [facility] ([facility]) Referrals: ERIN PAZ MD (PCP) Problem Qualifiers STEFANIE MELENDEZ DO Jan 22, 2018 10:14
[2018-01-22] MEDS ORDERED: KETOROLAC 30 MG/ML VIAL IVP ONE ×2 (10:30→16:20)
[2018-01-22 10:35] LABS: PLATELET COUNT, AUTOMATED 114 K/uL (150-450)
[2018-01-22 10:44] LABS: INR 1.26
--- NOTE | 2018-01-22 11:25 | RADIOLOGY IMAGING REPORT ---
[place] [facility] [place] NAME: Robi Evans : 1950 MR: [id number] V: [id number] EXAM DATE: ORDERING PHYSICIAN: STEFANIE MELENDEZ [place]CHN[place]: [place] [facility] [place]i [place] : 1950 Visit/Account:[id number] Date of Sevice: 01/22/2018 ABDOMEN/PELVIS W/O CONTRAST HISTORY: Right-sided abdomen pain, history of kidney stones TECHNIQUE: Axial images acquired through the abdomen/pelvis. Coronal and sagittal reformatting also performed. No IV contrast administered.Dose Lowering Technique One of the following dose optimization techniques was utilized in the performance of this exam: Autom ated exposure control; adjustment of the mA and/or kV according to the patient's size; or use of an i terative reconstruction technique. Specific details can be referenced in the facility's radiology C T exam operational policy. COMPARISON: Abdomen ultrasound February 12, 2016 FINDINGS: Visualized lung bases: Emphysematous changes are seen throughout the lungs. There is coarse linear stranding seen in the lung bases which may represent scarring or atelectasis. Incompletely imaged is a more confluent area of consolidation in the anteromedial right middle lobe measuring 2.1 x 1.8 cm. This could represent an area of atelectasis or scarring however a mass lesion should be excluded Hepatobiliary: The liver appears small with a lobular contour and a heterogeneous density although n ot ideally evaluated due to lack of contrast. The appearance is suggestive of cirrhosis. Spleen: Spleen is enlarged measuring 14.7 cm in AP dimension Adrenals: Negative. Pancreas: Fatty replacement of the pancreas Kidneys ureters and bladder: There is a moderate right hydronephrosis secondary to a 8 mm calculus in the proximal right ureter just beyond the right UPJ. There is an additional 3 mm calculus in the mi d right ureter. There is a 2 mm nonobstructing calcification in the mid pole calyx of the left kidney. There are hyperdensities seen in the renal pyramids bilaterally suggesting possible medullary sponge kidney disease Genitalia: Prostate gland is heterogeneous mildly enlarged impinging upon the floor the bladder GI: Negative. Vessels/spaces/nodes: There is recanalization of the umbilical vein. Extensive venous collaterals a re identified along the left anterior abdominal and pelvic wall. Extensive varices are seen in the l eft upper quadrant of abdomen. Serpiginous vessels are identified in the scrotal sac bilaterally which may represent varicoceles Bones/soft tissues: There is a right inguinal hernia containing fat. There are sclerotic densities in both hip joints, a small sclerotic focus left-sided T11 There are sclerotic changes seen along the inferior pubic rami bilaterally . Metastatic disease chao uld be excluded Additional findings: None pertinent. IMPRESSION: There is moderate right hydronephrosis secondary to an 8 mm calculus in the proximal right ureter jus t beyond the right UPJ and an additional 3 mm calculus in the mid right ureter There is a 2 mm nonobstructing calcification in the midpole of the left kidney There are hyperdensities in the renal pyramids bilaterally suggesting possible medullary sponge kidne y disease There are severe emphysematous changes throughout the lungs. Coarse linear stranding in the lung bas es may represent scarring versus atelectasis. Incompletely imaged is a confluent area of consolidation in the anteromedial right middle lobe measur ing 2.1 x 1.8 cm. This could represent an additional area of atelectasis or scarring however a mass lesion should be excluded. Cirrhotic appearance to the liver with recanalization of the umbilical vein and extensive collateral vessels in the left upper abdomen and also extensive subcutaneous venous collaterals along the anteri or left side of the abdominal pelvic wall. Mild splenomegaly Right inguinal hernia containing fat, probable bilateral varicoceles Sclerotic changes at both hip joints, and T11 and along the inferior pubic rami bilaterally. Metasta tic disease should be excluded Report Dictated By: Lenore Smith MD at 01/22/2018 11:05 [facility] E-Signed By: Lenore Smith MD at 01/22/2018 11:20 AM WSN:[id number]
--- NOTE | 2018-01-22 14:43 | Hospitalist Consultation ---
History of Present Illness Requesting Physician Dr. Euceda Reason for Consult Right proximal 8 mm ureteral calculus Chief Complaint Right renal colic History of Present Illness 67-year-old gentleman with a history of prior urolithiasis, at least one episode which required stenting with ureteroscopy, who presented to the emergency room with acute flank pain approximately 6 hours duration. It was associated with nausea but no gross hematuria, fever chills or Reiger. He underwent CT scan imaging which confirmed the presence of punctate calculi in the calyces as well as a large proximal right ureteral calculus. There is a questionable smaller distal right ureteral calculus. Since admitted to the emergency room he was given parenteral narcotic it is much more comfortable and his nausea has abated. History Home Meds Active Scripts Umeclidinium [place] (Incruse Ellipta) 62.5 Mcg Blst.w.dev, 1 INH INH DAILY, #1 INH 11 Refills Prov:ERIN PAZ MD 01/01/18 Fluticasone Propionate (FLOVENT HFA) 220 Mcg Inha, 1-2 PUFF INH BID, #1 INHALER 11 Refills Prov:ERIN PAZ MD 12/24/17 Spironolactone (SPIRONOLACTONE) 50 Mg Tablet, 12.5 MG PO DAILY, #1 TAB Prov:ERIN PAZ MD 12/22/17 Guaifenesin (MUCINEX) 600 Mg Tablet.er, 1200 MG PO BID, #20 TAB 0 Refills Prov:CJ ALDRIDGE MD 04/18/17 Reported Medications Albuterol Sulfate (VENTOLIN HFA) 18 Gm Inh, 2 PUFF INH Q4-6H, INH 04/04/17 Allergies: Coded Allergies: shellfish derived (Verified Allergy, Severe, 01/22/18) clavulanic acid (Verified Adverse Reaction, Mild, NAUSEA/VOMITING, 01/22/18) Nausea and diarrhea with PO. Patient unable to vomit d/t surgery. Patient History: FH: cancer BROTHER OR SISTER FH: heart disease BROTHER OR SISTER Hx Smoking: No Smoking Status: Never Smoker Exposure to Second Hand Smoke?: Yes (mother and father smoked growing up) Hx Alcohol Use: No Hx Substance Use Disorder: No Social Drug Use: Never Review of Systems Constitutional: No Fever, No Weight Loss, No Weight Gain, No Chills, No Night Sweats, No Other Neurological: No Syncope, No Confusion, No Weakness, No Dizziness, No Slurred Speech, No Other Eyes: No Vision Change, No Loss of Vision, No Photophobia, No Other ENT: No Hearing Loss, No Sinus Congestion, No Sore Throat, No Ear Ache, No Tinnitus, No Other Cardiovascular: No Chest Pain, No Palpitations, No Orthostatic Hypotension, No Other Respiratory: Shortness of Breath, Wheezing Gastrointestinal: Nausea Genitourinary: No Dysuria, No Hematuria, No Urinary Incontinence, No Other Musculoskeletal: No Pain, No Sprain, No Strain, No Impaired Mobility, No Other Psychiatric: Anxiety Exam Vital Signs Vital Signs Date Time Temp Pulse Resp B/P (MAP) Pulse Ox O2 Delivery O2 Flow Rate FiO2 01/22/18 10:13 98.1 79 16 114/73 86 Nasal Cannula General Appearance: Alert, Afebrile Neuro: No Gross deficits Eyes: PERRLA ENT: Normal Neck: No Masses Cardiovascular: Regular Rate and Rhythm Respiratory: Other (distant breath sounds) Chest: No Masses GI: Abd Soft and Non-Tender : Other (mild right CVA tenderness) Extremities: Soft and Non Tender Integumentary: Skin Intact without Lesion / Mass Psych: Alert & Oriented X3 Medical Decision Making Data Points Result Diagram: 01/22/18 1021 01/22/18 1021 EKG / Imaging Imaging CT scan images as detailed in history of present illness Pre-Admit Course Medical Record Review: Yes Assessment and Plan Condition I reviewed the situation with the patient at the bedside. I told him I thought it was unlikely that this stone would pass spontaneously. I told him that given his underlying coagulopathy, shockwave lithotripsy may not be a good option for him and his best option is likely right ureteroscopic laser lithotripsy with stone extraction and stent placement. The usual intraoperative and postoperative course of this procedure was reviewed in detail including stent related symptoms. He has significant medical comorbidities and I would like him to be evaluated by the hospitalist service and preoperatively by anesthesia to see if he can be optimized for the above procedure. I will tentatively schedule him, but this is contingent upon further assessment of his medical comorbidities Venous Thromboembolism Antithrombotics Is Pt On Any Antithrombotics?: No Prophylaxis Tx Contraindicated Pharmacological Contraindicati: Pt at Low Risk for VTE Mechanical Contraindications: Pt at Low Risk for VTE Exam Sepsis Risk: No Definite Risk UHLMAN,FRANCISCO J MD Jan 22, 2018 14:43
[2018-01-22 15:00] VITALS: BP 101/66
== END 2018-01-22 18:06 | disposition short-term general hospital (02) ==
LOC: ER 10:27
DX: K74.60 Unspecified cirrhosis of liver (principal); N20.0 Calculus of kidney; E88.01 Alpha-1-antitrypsin deficiency
CPT/HCPCS: 74176; 81001; 83690; 85025; 85610; 85730; 96374; 96376; 99284; J1885; 82040; 82247; 82310; 82374; 82435; 82565; 82947; 84075; 84132; 84155; 84295; 84450; 84460; 84520

== ENCOUNTER → 2018-03-08 | Outpatient (CLI) | payer MEDICARE, BC ==
[2017-04-05 10:21] VITALS: BMI 25.1
[~2018-03-08] MED LIST changes: +DILT120C12 PO; -DILT120C18 PO
[2018-03-08 15:11] LABS: PLATELET COUNT, AUTOMATED 111 K/uL (150-450)
== END ==
LOC: LAB 14:50
PROVIDERS: ATTEND Emergency Medicine
DX: R31.9 Hematuria, unspecified (principal)
CPT/HCPCS: 36415; 85025

== ENCOUNTER → 2018-05-03 | Outpatient (CLI) | payer MEDICARE, BC ==
[2017-04-05 10:21] VITALS: BMI 25.1
[2018-05-03 15:34] LABS: PLATELET COUNT, AUTOMATED 103 K/uL (150-450)
--- NOTE | 2018-05-03 16:00 | RADIOLOGY IMAGING REPORT ---
FACILITY: [facility] - [place] PATIENT NAME: Robi Evans : 1950 MR: [id number] V: [id number] EXAM DATE: ORDERING PHYSICIAN: ERIN PAZ TECHNOLOGIST: Location: [facility] Patient: oRbi Evans : 1950 Visit/Account:[id number] Date of Sevice: 05/03/2018 Exam type: CHEST PA LAT History: Chronic cough with brick red sputum for 2 weeks Comparison: April 15, 2017. Findings: Hyperinflation throughout the lung baker again seen. Linear scarring in the lung bases appears cas lar to April 08, 2017. No focal infiltrates are identified. The cardiac silhouette is normal in s ize. There are mild spondylotic changes of the thoracic spine IMPRESSION: 1. Hyperinflation throughout the lung baker and linear scarring the lung bases appears similar to t he prior study Report Dictated By: Lenore Smith MD at 05/03/2018 3:53 PM Report E-Signed By: Lenore Smith MD at 05/03/2018 3:55 PM WSN:[email or web address]
== END ==
LOC: LAB 15:09
PROVIDERS: ATTEND Emergency Medicine
DX: M47.894 Other spondylosis, thoracic region (principal); R91.8 Other nonspecific abnormal finding of lung field
CPT/HCPCS: 36415; 71046; 85025; 86140; 87633

== ENCOUNTER → 2018-11-12 | Outpatient (CLI) | payer MEDICARE, BC ==
[2017-04-05 10:21] VITALS: BMI 25.1
[~2018-11-12] MED LIST changes: +CHOL100052 PO; +LEVO750T44 PO
== END ==
LOC: LAB 08:28
PROVIDERS: ATTEND Emergency Medicine
DX: E55.9 Vitamin D deficiency, unspecified (principal); E88.01 Alpha-1-antitrypsin deficiency
CPT/HCPCS: 36415; 82040; 82247; 82306; 82310; 82374; 82435; 82565; 82947; 84075; 84132; 84155; 84295; 84443; 84450; 84460; 84520